=== PATIENT | male | born 1935 | race Caucasian/White ===

== ENCOUNTER 2017-07-09 19:02 | Inpatient (IN) | payer MEDICARE ==
[~2017-07-09] VITALS: Ht 167.6 cm; Wt 81.8 kg
--- NOTE | 2017-07-09 19:35 | PHYS DOC ---
Adult General Chief Complaint Chief Complaint: PSYCH EVALUATION HPI HPI 82-year-old male sent to the emergency department for evaluation of difficult behaviors for medical clearance in anticipation of psychiatric admission. Patient is alert and cooperative. He has no SI or HI. Patient has not overdosed or injured himself in any way. He has no complaints and is able ambulate with his walker and converse without difficulty Review of Systems Review of Systems Constitutional: Denies fever or chills [] Eyes: Denies change in visual acuity, redness, or eye pain [] HENT: Denies nasal congestion or sore throat [] Respiratory: Denies cough or shortness of breath [] Cardiovascular: No additional information not addressed in HPI [] GI: Denies abdominal pain, nausea, vomiting, bloody stools or diarrhea [] : Denies dysuria or hematuria [] Musculoskeletal: Denies back pain or joint pain [] Integument: Denies rash or skin lesions [] Neurologic: Denies headache, focal weakness or sensory changes [] Endocrine: Denies polyuria or polydipsia [] All other systems were reviewed and found to be within normal limits, except as documented in this note. Physical Exam Physical Exam Elderly male no acute distress ambulating easily with his walker. Well groomed. Mucous membranes moist supple neck clear lungs regular rate and rhythm benign abdomen normal extremities and a nonfocal neurologic exam Constitutional: Well developed, well nourished, no acute distress, non-toxic appearance. [] HENT: Normocephalic, atraumatic, bilateral external ears normal, oropharynx moist, no oral exudates, nose normal. [] Eyes: PERRLA, EOMI, conjunctiva normal, no discharge. [] Neck: Normal range of motion, no tenderness, supple, no stridor. [] Cardiovascular:Heart rate regular rhythm, no murmur [] Lungs & Thorax: Bilateral breath sounds clear to auscultation [] Abdomen: Bowel sounds normal, soft, no tenderness, no masses, no pulsatile masses. [] Skin: Warm, dry, no erythema, no rash. [] Back: No tenderness, no CVA tenderness. [] Extremities: No tenderness, no cyanosis, no clubbing, ROM intact, no edema. [] Neurologic: Alert and oriented, normal motor function, normal sensory function, no focal deficits noted. [] Psychologic: Flat affect, judgement normal, mood normal. [] EKG EKG [] Radiology/Procedures Radiology/Procedures [] Course & Med Decision Making Course & Med Decision Making Pertinent Labs and Imaging studies reviewed. (See chart for details) Elderly male sent for medical clearance for psychiatric evaluation. He is clinically stable and well-appearing with a benign exam. Medical clearance pending. If unremarkable patient will be transferred to [facility]. [] Dragon Disclaimer Dragon Disclaimer This electronic medical record was generated, in whole or in part, using a voice recognition dictation system. Departure Departure: Impression: Primary Impression: Depression Additional Impressions: Inappropriate behavior Prerenal azotemia Disposition: ADMITTED INPATIENT Admitting Physician: Other Condition: GOOD Problem Qualifiers RUTHY AWAD MD Jul 09, 2017 19:35
[2017-07-09 19:45] LABS: BASO # 0.1 x10^3/uL (0.0-0.2); BASO % 1 % (0-3); EOS # 0.1 x10^3/uL (0.0-0.7); EOS % 1 % (0-3); HEMATOCRIT 41.9 % (39.0-53.0); HEMOGLOBIN 14.8 g/dL (13.0-17.5); LYMPH # 1.3 x10^3/uL (1.0-4.8); LYMPH % 14 % (24-48); MEAN CORPUSCULAR HEMOGLOBIN 34 pg (25-35); MEAN CORPUSCULAR HGB CONC 35 g/dL (31-37); MEAN CORPUSCULAR VOLUME 95 fL (79-100); MONO # 0.6 x10^3/uL (0.0-1.1); MONO % 6 % (0-9); NEUT # 7.5 x10^3uL (1.8-7.7); NEUT % 79 % (31-73); PLATELET COUNT 194 x10^3/uL (140-400); RED BLOOD COUNT 4.41 x10^6/uL (4.30-5.70); RED CELL DISTRIBUTION WIDTH 13.4 % (11.5-14.5); WHITE BLOOD COUNT 9.6 x10^3/uL (4.0-11.0)
[2017-07-09 19:54] LABS: CALCIUM 8.5 mg/dL (8.5-10.1); CREATININE 1.1 mg/dL (0.7-1.3); GFR 64.4; POTASSIUM 3.5 mmol/L (3.5-5.1)
[2017-07-09 20:06] LABS: BILIRUBIN,URINE NEG (NEG); CLARITY,URINE CLEAR; COLOR,URINE YELLOW; GLUCOSE,URINE NEG (NEG); NITRITE,URINE NEG (NEG); UROBILINOGEN,URINE 0.2 mg/dL (0.2 mg/dL)
[2017-07-09 20:07] LABS: BACTERIA,URINE 0 /HPF (0-FEW); SQUAMOUS EPITHELIAL CELL,UR FEW /LPF
[2017-07-09 20:08] LABS: HYALINE CASTS, URINE OCC /HPF
[2017-07-09] MEDS ORDERED: IV NORMAL SALINE 1,000ML 1,000 ML IV ONE (21:30)
[2017-07-09] MEDS ORDERED: DIVA125C PO (22:00)
[2017-07-09] MEDS ORDERED: CYAN50TA PO (22:00)
[2017-07-09] MEDS ORDERED: MULT-246 PO (22:00)
[2017-07-09] MEDS ORDERED: TAMS0.4C97 PO (22:00)
[2017-07-09] MEDS ORDERED: DONE10TA61 PO (22:00)
[2017-07-09] MEDS ORDERED: AMLO10TA4 PO (22:00)
[2017-07-09] MEDS ORDERED: MEMA10TA PO ×2 (22:00)
[2017-07-09] MEDS ORDERED: CLON0.1T PO (22:00)
[2017-07-09] MEDS ORDERED: LISI40TA PO (22:00)
[2017-07-09] MEDS ORDERED: MAGNESIUM HYDROXIDE 2,400 MG/30 ML ORAL.SUSP. PO PRN (22:45)
[2017-07-09] MEDS ORDERED: MAG HYDROX/AL HYDROX/SIMETH 30 ML ORAL.SUSP PO PRN (22:45)
[2017-07-09] MEDS ORDERED: METHYL SALICYLATE/MENTHOL TOPICAL OINTMENT 29GM TUBE. TP PRN (22:45)
[2017-07-09] MEDS ORDERED: ACETAMINOPHEN 325 MG TABLET PO PRN (22:45)
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
[2017-07-09] MEDS ORDERED: cloNIDine HCL 0.1 MG TABLET PO PRN (23:15)
[2017-07-09 23:36] VITALS: BP 164/85
[2017-07-10 00:02] LABS: VAL ACID 6 mcg/mL (50-100)
[2017-07-10 06:10] VITALS: BP 141/67
[2017-07-10] MEDS: amLODIPine BESYLATE 10 MG TABLET PO SCH (07:33)
[2017-07-10] MEDS: MEMANTINE 10 MG TABLET. PO SCH ×2 (07:33→19:39)
[2017-07-10] MEDS: TAMSULOSIN 0.4 MG CAP.ER.24H. PO SCH (07:33)
[2017-07-10] MEDS: DONEPEZIL HCL 10 MG TABLET PO SCH (07:33)
[2017-07-10] MEDS: LISINOPRIL 20 MG TABLET PO SCH (07:34)
[2017-07-10] MEDS: CYANOCOBALAMIN (VITAMIN B-12) 100 MCG TABLET PO SCH (07:35)
[2017-07-10] MEDS: MULTIVITAMIN with MINERAL TABLET. PO SCH (07:35)
[2017-07-10] MEDS ORDERED: DIVALPROEX 125 MG CAP.SPRINK PO SCH (09:00)
[2017-07-10] MEDS ORDERED: PNEUMOC CONJ VACC 23-VALENT 0.5 ML VIAL. VAX IM ONE (09:00)
--- NOTE | 2017-07-10 09:12 | EKG ---
[address] [address] Test Date: 2017-07-09 Test Time: 19:43:13 Pat Name: JOHN OLSEN Department: Room: [address] [place] [address] Gender: M Food Stand Manager: SAE : [id number] Requested By: RUTHY AWAD Order Number: [id number] Reading MD: Robson Ruiz Measurements Intervals [place] Rate: 80 P: 59 MD: 168 QRS: 45 QRSD: 82 T: 49 QT: 360 QTc: 419 Interpretive Statements SINUS RHYTHM NORMAL ECG RI6.01 No previous ECG available for comparison Electronically Signed On 07-26-2017 15:59:00 CDT by Robson Ruiz
--- NOTE | 2017-07-10 10:06 | NUR ---
Behavior Intervention Response and Plan: BIRP Note: Behavior: Assumed Care of patient, patient located in Dining Room at shift change. Patient exhibited the following behavior Disorganized, Calm, Wandering. Brief assessment on rounds of vital signs, medication needs, lab studies, and pain. Treatment plan problems . Intervention: Patient assessed and the following interventions initiated safety checks 15 Minute Checks Cognitive Assessment , Head to toe Assessment , Medications. Response: After interactions and interventions patient responded in the following manner, Disorganized , Compliant ,Cooperative. Continue to assess behaviors and condition will continue to monitor throughout the shift as needed. Patient educated on ADL's, and hand hygiene. 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 Continue to assess patient for changes in above assessment. Monitor for medication needs, pain, and safety concerns. Hourly rounding performed to ensure safe environment.
[2017-07-10 12:02] LABS: THYROID STIM HORMONE (TSH) 0.937 uIU/mL (0.358-3.740)
--- NOTE | 2017-07-10 13:25 | NUR ---
SW reviewed pt insurance information upon admission, pt has Medicare primary.
[2017-07-10] MEDS: CHOLECALCIFEROL (VITAMIN D3) 50,000 UNIT CAPSULE PO SCH (14:37)
--- NOTE | 2017-07-10 14:39 | NUR ---
pt up adl with and without walker. ambulates up halls rapidly. pt opens eyes widely and tracks poorly. Dr aware. Pt has hx of head injury. has been compliant with meds and cares.
[2017-07-10 16:12] VITALS: BP 139/71
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
--- NOTE | 2017-07-10 18:19 | PDOC ---
Exam Note: Lavon Note: Please also refer to the separate dictated note~for this date of service dictated separately.~Patient seen individually. Discussed the patient with Nursing staff reviewed the chart.~Reviewed interim history and current functioning. Reviewed vital signs,~Labs/ Radiology~and current medications noted below. Continue current treatment with the changes noted in the dictated addendum note Assessment: Vital Signs: Vital Signs Date Time Temp Pulse Resp B/P (MAP) Pulse Ox O2 Delivery O2 Flow Rate FiO2 07/10/17 16:12 98.5 70 16 139/71 (93) 94 07/09/17 23:36 Room Air 0.0 I&O Intake and Output 07/10/17 07:00 Intake Total 1000 ml Balance 1000 ml Intake Oral 0 ml IV Total 1000 ml Labs: Laboratory Tests Test 07/09/17 19:16 07/09/17 19:26 White Blood Count 9.6 x10^3/uL (4.0-11.0) Red Blood Count 4.41 x10^6/uL (4.30-5.70) Hemoglobin 14.8 g/dL (13.0-17.5) Hematocrit 41.9 % (39.0-53.0) Mean Corpuscular Volume 95 fL (79-100) Mean Corpuscular Hemoglobin 34 pg (25-35) Mean Corpuscular Hemoglobin Concent 35 g/dL (31-37) Red Cell Distribution Width 13.4 % (11.5-14.5) Platelet Count 194 x10^3/uL (140-400) Neutrophils (%) (Auto) 79 % (31-73) H Lymphocytes (%) (Auto) 14 % (24-48) L Monocytes (%) (Auto) 6 % (0-9) Eosinophils (%) (Auto) 1 % (0-3) Basophils (%) (Auto) 1 % (0-3) Neutrophils # (Auto) 7.5 x10^3uL (1.8-7.7) Lymphocytes # (Auto) 1.3 x10^3/uL (1.0-4.8) Monocytes # (Auto) 0.6 x10^3/uL (0.0-1.1) Eosinophils # (Auto) 0.1 x10^3/uL (0.0-0.7) Basophils # (Auto) 0.1 x10^3/uL (0.0-0.2) Urine Collection Type Unknown Urine Color Yellow Urine Clarity Clear Urine pH 6.0 Urine Specific [place] 1.020 Urine Protein 30 mg/dl (NEG-TRACE) Urine Glucose (UA) Neg mg/dL (NEG) Urine Ketones (Stick) Neg mg/dL (NEG) Urine Blood Trace (NEG) Urine Nitrite Neg (NEG) Urine Bilirubin Neg (NEG) Urine Urobilinogen Dipstick 0.2 mg/dL (0.2 mg/dL) Urine Leukocyte Esterase Neg (NEG) Urine RBC 1-2 /HPF (0-2) Urine WBC 5-10 /HPF (0-4) Urine Squamous Epithelial Cells Few /LPF Urine Bacteria 0 /HPF (0-FEW) Urine Hyaline Casts Occ /HPF Urine Mucus Slight /LPF Sodium Level 142 mmol/L (136-145) Potassium Level 3.5 mmol/L (3.5-5.1) Chloride Level 107 mmol/L (98-107) Carbon Dioxide Level 23 mmol/L (21-32) Anion Gap 12 (6-14) Blood Urea Nitrogen 28 mg/dL (8-26) H Creatinine 1.1 mg/dL (0.7-1.3) Estimated GFR (Cockcroft-Gault) 64.4 Glucose Level 157 mg/dL (70-99) H Calcium Level 8.5 mg/dL (8.5-10.1) Troponin I Quantitative < 0.017 ng/mL (0-0.055) Magnesium Level 2.0 mg/dL (1.8-2.4) Iron Level 37 ug/dL (65-175) L Total Iron Binding Capacity 266 ug/dL (250-450) Iron Saturation 14 % (15-34) L Triglycerides Level 405 mg/dL (0-150) H Cholesterol Level 205 mg/dL (0-200) H LDL Cholesterol, Calculated 96 mg/dL (0-100) VLDL Cholesterol, Calculated 81 mg/dL (0-40) H Non-HDL Cholesterol Calculated 177 mg/dL (0-129) H HDL Cholesterol 28 mg/dL (40-60) L Cholesterol/HDL Ratio 7.0 Vitamin B12 Level 442 pg/mL (247-911) 25-Hydroxy Vitamin D Total 21.6 ng/mL (30-100) L Thyroid Stimulating Hormone (TSH) 0.937 uIU/mL (0.358-3.740) Valproic Acid Level 6 mcg/mL (50-100) L Valproic Acid Last Dose Date 07/08/2017 Valproic Acid Last Dose Time 2100 Current Medications: Meds: Current Medications Sodium Chloride 1,000 ml @ 1,000 mls/hr 1X ONCE IV Last administered on at 21:19; Start 07/09/17 at 21:30; Stop 07/09/17 at 22:29; Status DC Acetaminophen (Tylenol) 650 mg PRN Q6HRS PRN PO PAIN / TEMP; Start 07/09/17 at 22:45 Multi-Ingredient Ointment (Analgesic [place]) 1 camryn PRN QID PRN TP MUSCLE PAIN; Start 07/09/17 at 22:45 Al Hydroxide/Mg Hydroxide (Mylanta Plus Xs) 15 ml PRN AFTMEALHC PRN PO DYSPEPSIA; Start 07/09/17 at 22:45 Magnesium Hydroxide (Milk Of Magnesia) 2,400 mg PRN QHS PRN PO CONSTIPATION; Start 07/09/17 at 22:45 Divalproex Sodium (Depakote Sprinkles) 125 mg DAILY PO Last administered on at 07:33; Start 07/10/17 at 09:00 Donepezil HCl (Aricept) 10 mg DAILY PO Last administered on 07/10/17at 07:33; Start 07/10/17 at 09:00 Memantine (Namenda) 10 mg BID PO Last administered on 07/10/17at 07:33; Start at 09:00 Amlodipine Besylate (Norvasc) 10 mg DAILY PO Last administered on 07/10/17at 07: 33; Start 07/10/17 at 09:00 Clonidine HCl (Catapres) 0.1 mg PRN BID PRN PO HTN; Start 07/09/17 at 23:15 Tamsulosin HCl (Flomax) 0.4 mg DAILY PO Last administered on 07/10/17at 07:33; Start 07/10/17 at 09:00 Cyanocobalamin (Vitamin B-12) 50 mcg DAILY PO ; Start 07/10/17 at 09:00 Lisinopril (Prinivil) 40 mg DAILY PO Last administered on 07/10/17at 07:34; Start 07/10/17 at 09:00 Multivitamins/ Calcium (Thera-M Plus) 1 tab DAILY PO Last administered on at 07:35; Start 07/10/17 at 09:00 Pneumococcal Polyvalent Vaccine (Pneumovax 23) 0.5 ml ONCE ONCE VAX IM Last administered on 07/10/17at 09:40; Start 07/10/17 at 09:00; Stop 07/10/17 at 09:01 ; Status DC Vitamin D (Vitamin D3) 50,000 unit WEEKLY PO Last administered on 07/10/17at 14: 37; Start 07/10/17 at 15:00 Active Scripts Active Reported Clonidine Hcl 0.1 Mg Tablet 0.1 Mg PO PRN BID PRN Depakote Sprinkle (Divalproex Sodium) 125 Mg Cap.sprink 125 Mg PO DAILY Norvasc (Amlodipine Besylate) 10 Mg Tablet 10 Mg PO DAILY Vitamin B-12 (Cyanocobalamin (Vitamin B-12)) 50 Mcg Tablet 50 Mcg PO DAILY Multi-Vitamin Daily (Multivitamin) 1 Each Tablet 1 Tab PO DAILY Flomax (Tamsulosin Hcl) 0.4 Mg Cap.er.24h 0.4 Mg PO DAILY Namenda (Memantine Hcl) 10 Mg Tablet 10 Mg PO BID Lisinopril 40 Mg Tablet 40 Mg PO DAILY Aricept (Donepezil Hcl) 10 Mg Tablet 10 Mg PO DAILY I have reviewed the current psychotropics carefully including drug interactions. Risk benefit ratio favors no change other than as noted in my dictated progress note. Diagnosis: Problems: (1) Anxiety disorder (2) Dementia in Alzheimer's disease with delusions (3) Dementia in Alzheimer's disease with depression (4) Dementia, vascular, with delusions (5) Dementia, vascular, with depression (6) Impulse control disorder NEVILLE ANTONIO MD Jul 10, 2017 18:19
[2017-07-10] MEDS: DIVALPROEX 125 MG CAP.SPRINK PO SCH (19:41)
[2017-07-10] MEDS: MIRTAZAPINE 7.5 MG TABLET. PO SCH (19:41)
--- NOTE | 2017-07-10 20:42 | PDOC ---
Exam Note: Lavon Note: Please also refer to the separate dictated note~for this date of service dictated separately.~Patient seen individually. Discussed the patient with Nursing staff reviewed the chart.~Reviewed interim history and current functioning. Reviewed vital signs,~Labs/ Radiology~and current medications noted below. Continue current treatment with the changes noted in the dictated addendum note Assessment: Vital Signs: Vital Signs Date Time Temp Pulse Resp B/P (MAP) Pulse Ox O2 Delivery O2 Flow Rate FiO2 07/10/17 16:12 98.5 70 16 139/71 (93) 94 07/09/17 23:36 Room Air 0.0 I&O Intake and Output 07/10/17 07:00 Intake Total 1000 ml Balance 1000 ml Intake Oral 0 ml IV Total 1000 ml Current Medications: Meds: Current Medications Sodium Chloride 1,000 ml @ 1,000 mls/hr 1X ONCE IV Last administered on at 21:19; Start 07/09/17 at 21:30; Stop 07/09/17 at 22:29; Status DC Acetaminophen (Tylenol) 650 mg PRN Q6HRS PRN PO PAIN / TEMP; Start 07/09/17 at 22:45 Multi-Ingredient Ointment (Analgesic [place]) 1 camryn PRN QID PRN TP MUSCLE PAIN; Start 07/09/17 at 22:45 Al Hydroxide/Mg Hydroxide (Mylanta Plus Xs) 15 ml PRN AFTMEALHC PRN PO DYSPEPSIA; Start 07/09/17 at 22:45 Magnesium Hydroxide (Milk Of Magnesia) 2,400 mg PRN QHS PRN PO CONSTIPATION; Start 07/09/17 at 22:45 Divalproex Sodium (Depakote Sprinkles) 125 mg DAILY PO Last administered on at 07:33; Start 07/10/17 at 09:00; Stop 07/10/17 at 18:16; Status DC Donepezil HCl (Aricept) 10 mg DAILY PO Last administered on 07/10/17at 07:33; Start 07/10/17 at 09:00 Memantine (Namenda) 10 mg BID PO Last administered on 07/10/17at 19:39; Start at 09:00 Amlodipine Besylate (Norvasc) 10 mg DAILY PO Last administered on 07/10/17at 07: 33; Start 07/10/17 at 09:00 Clonidine HCl (Catapres) 0.1 mg PRN BID PRN PO HTN; Start 07/09/17 at 23:15 Tamsulosin HCl (Flomax) 0.4 mg DAILY PO Last administered on 07/10/17at 07:33; Start 07/10/17 at 09:00 Cyanocobalamin (Vitamin B-12) 50 mcg DAILY PO ; Start 07/10/17 at 09:00 Lisinopril (Prinivil) 40 mg DAILY PO Last administered on 07/10/17at 07:34; Start 07/10/17 at 09:00 Multivitamins/ Calcium (Thera-M Plus) 1 tab DAILY PO Last administered on at 07:35; Start 07/10/17 at 09:00 Pneumococcal Polyvalent Vaccine (Pneumovax 23) 0.5 ml ONCE ONCE VAX IM Last administered on 07/10/17at 09:40; Start 07/10/17 at 09:00; Stop 07/10/17 at 09:01 ; Status DC Vitamin D (Vitamin D3) 50,000 unit WEEKLY PO Last administered on 07/10/17at 14: 37; Start 07/10/17 at 15:00 Divalproex Sodium (Depakote Sprinkles) 250 mg BID PO Last administered on at 19:41; Start 07/10/17 at 21:00 Mirtazapine (Remeron) 7.5 mg QHS PO Last administered on 07/10/17at 19:41; Start 07/10/17 at 21:00 Active Scripts Active Reported Clonidine Hcl 0.1 Mg Tablet 0.1 Mg PO PRN BID PRN Depakote Sprinkle (Divalproex Sodium) 125 Mg Cap.sprink 125 Mg PO DAILY Norvasc (Amlodipine Besylate) 10 Mg Tablet 10 Mg PO DAILY Vitamin B-12 (Cyanocobalamin (Vitamin B-12)) 50 Mcg Tablet 50 Mcg PO DAILY Multi-Vitamin Daily (Multivitamin) 1 Each Tablet 1 Tab PO DAILY Flomax (Tamsulosin Hcl) 0.4 Mg Cap.er.24h 0.4 Mg PO DAILY Namenda (Memantine Hcl) 10 Mg Tablet 10 Mg PO BID Lisinopril 40 Mg Tablet 40 Mg PO DAILY Aricept (Donepezil Hcl) 10 Mg Tablet 10 Mg PO DAILY I have reviewed the current psychotropics carefully including drug interactions. Risk benefit ratio favors no change other than as noted in my dictated progress note. Diagnosis: Problems: (1) Anxiety disorder (2) Impulse control disorder (3) Dementia, vascular, with depression (4) Dementia, vascular, with delusions (5) Dementia in Alzheimer's disease with depression (6) Dementia in Alzheimer's disease with delusions NEVILLE ANTONIO MD Jul 10, 2017 20:42
[2017-07-11 00:07] LABS: T3 TOTAL 82 ng/dL (71-180); THYROXINE 5.8 ug/dL (4.5-12.0)
[2017-07-11 04:08] LABS: HEMOGLOBIN A1C 5.2 % (4.8-5.6)
[2017-07-11 06:19] VITALS: BP 126/62
[2017-07-11] MEDS: TAMSULOSIN 0.4 MG CAP.ER.24H. PO SCH (07:44)
[2017-07-11] MEDS: MULTIVITAMIN with MINERAL TABLET. PO SCH (07:44)
[2017-07-11] MEDS: LISINOPRIL 20 MG TABLET PO SCH (07:44)
[2017-07-11] MEDS: DONEPEZIL HCL 10 MG TABLET PO SCH (07:44)
[2017-07-11] MEDS: MEMANTINE 10 MG TABLET. PO SCH ×2 (07:44→20:15)
[2017-07-11] MEDS: DIVALPROEX 125 MG CAP.SPRINK PO SCH ×2 (07:45→20:15)
[2017-07-11] MEDS: amLODIPine BESYLATE 10 MG TABLET PO SCH (07:50)
[2017-07-11] MEDS: CYANOCOBALAMIN (VITAMIN B-12) 100 MCG TABLET PO SCH (07:51)
--- NOTE | 2017-07-11 09:38 | NUR ---
Behavior Intervention Response and Plan: BIRP Note: Behavior: Assumed Care of patient, patient located in Dining Room at shift change. Patient exhibited the following behavior Disorganized, Calm, Wandering. Brief assessment on rounds of vital signs, medication needs, lab studies, and pain. Treatment plan problems . Intervention: Patient assessed and the following interventions initiated safety checks 15 Minute Checks Cognitive Assessment , Head to toe Assessment , Medications. Response: After interactions and interventions patient responded in the following manner, Disorganized , Compliant ,Cooperative. Continue to assess behaviors and condition will continue to monitor throughout the shift as needed. Patient educated on ADL's, and hand hygiene. 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 Continue to assess patient for changes in above assessment. Monitor for medication needs, pain, and safety concerns. Hourly rounding performed to ensure safe environment.
--- NOTE | 2017-07-11 16:07 | PDOC ---
Exam Note: Lavon Note: Please also refer to the separate dictated note~for this date of service dictated separately.~Patient seen individually. Discussed the patient with Nursing staff reviewed the chart.~Reviewed interim history and current functioning. Reviewed vital signs,~Labs/ Radiology~and current medications noted below. Continue current treatment with the changes noted in the dictated addendum note Assessment: Vital Signs: Vital Signs Date Time Temp Pulse Resp B/P (MAP) Pulse Ox O2 Delivery O2 Flow Rate FiO2 07/11/17 07:50 58 126/62 07/11/17 06:19 97.7 18 95 07/09/17 23:36 Room Air 0.0 I&O Intake and Output 07/11/17 07:00 Intake Total 1440 ml Balance 1440 ml Intake Oral 1440 ml Current Medications: Meds: Current Medications Sodium Chloride 1,000 ml @ 1,000 mls/hr 1X ONCE IV Last administered on at 21:19; Start 07/09/17 at 21:30; Stop 07/09/17 at 22:29; Status DC Acetaminophen (Tylenol) 650 mg PRN Q6HRS PRN PO PAIN / TEMP; Start 07/09/17 at 22:45 Multi-Ingredient Ointment (Analgesic [place]) 1 camryn PRN QID PRN TP MUSCLE PAIN; Start 07/09/17 at 22:45 Al Hydroxide/Mg Hydroxide (Mylanta Plus Xs) 15 ml PRN AFTMEALHC PRN PO DYSPEPSIA; Start 07/09/17 at 22:45 Magnesium Hydroxide (Milk Of Magnesia) 2,400 mg PRN QHS PRN PO CONSTIPATION; Start 07/09/17 at 22:45 Divalproex Sodium (Depakote Sprinkles) 125 mg DAILY PO Last administered on at 07:33; Start 07/10/17 at 09:00; Stop 07/10/17 at 18:16; Status DC Donepezil HCl (Aricept) 10 mg DAILY PO Last administered on 07/11/17at 07:44; Start 07/10/17 at 09:00 Memantine (Namenda) 10 mg BID PO Last administered on 07/11/17at 07:44; Start at 09:00 Amlodipine Besylate (Norvasc) 10 mg DAILY PO Last administered on 07/11/17at 07: 50; Start 07/10/17 at 09:00 Clonidine HCl (Catapres) 0.1 mg PRN BID PRN PO HTN; Start 07/09/17 at 23:15 Tamsulosin HCl (Flomax) 0.4 mg DAILY PO Last administered on 07/11/17at 07:44; Start 07/10/17 at 09:00 Cyanocobalamin (Vitamin B-12) 50 mcg DAILY PO Last administered on 07/11/17 07 :51; Start 07/10/17 at 09:00 Lisinopril (Prinivil) 40 mg DAILY PO Last administered on 07/11/17 07:44; Start 07/10/17 at 09:00 Multivitamins/ Calcium (Thera-M Plus) 1 tab DAILY PO Last administered on at 07:44; Start 07/10/17 at 09:00 Pneumococcal Polyvalent Vaccine (Pneumovax 23) 0.5 ml ONCE ONCE VAX IM Last administered on 07/10/17at 09:40; Start 07/10/17 at 09:00; Stop 07/10/17 at 09:01 ; Status DC Vitamin D (Vitamin D3) 50,000 unit WEEKLY PO Last administered on 07/10/17at 14: 37; Start 07/10/17 at 15:00 Divalproex Sodium (Depakote Sprinkles) 250 mg BID PO Last administered on 07:45; Start 07/10/17 at 21:00 Mirtazapine (Remeron) 7.5 mg QHS PO Last administered on 07/10/17at 19:41; Start 07/10/17 at 21:00 Active Scripts Active Reported Clonidine Hcl 0.1 Mg Tablet 0.1 Mg PO PRN BID PRN Depakote Sprinkle (Divalproex Sodium) 125 Mg Cap.sprink 125 Mg PO DAILY Norvasc (Amlodipine Besylate) 10 Mg Tablet 10 Mg PO DAILY Vitamin B-12 (Cyanocobalamin (Vitamin B-12)) 50 Mcg Tablet 50 Mcg PO DAILY Multi-Vitamin Daily (Multivitamin) 1 Each Tablet 1 Tab PO DAILY Flomax (Tamsulosin Hcl) 0.4 Mg Cap.er.24h 0.4 Mg PO DAILY Namenda (Memantine Hcl) 10 Mg Tablet 10 Mg PO BID Lisinopril 40 Mg Tablet 40 Mg PO DAILY Aricept (Donepezil Hcl) 10 Mg Tablet 10 Mg PO DAILY I have reviewed the current psychotropics carefully including drug interactions. Risk benefit ratio favors no change other than as noted in my dictated progress note. Diagnosis: Problems: (1) Dementia in Alzheimer's disease with delusions (2) Dementia in Alzheimer's disease with depression (3) Dementia, vascular, with delusions (4) Dementia, vascular, with depression (5) Impulse control disorder (6) Anxiety disorder NEVILLE ANTONIO MD Jul 11, 2017 16:07
[2017-07-11 16:11] VITALS: BP 119/50
--- NOTE | 2017-07-11 16:37 | NUR ---
pt up adl with walker. reminded several times to use walker. has been obsessed with getting personal items out of locker. has been compliant with meds and cares. pt thought nurse was working on flight plan schedule. he was asking when next flight was leaving. pt has had visitors and talked with dtr Josefina on phone.
[2017-07-11] MEDS: MIRTAZAPINE 7.5 MG TABLET. PO SCH (20:15)
[2017-07-11] MEDS: ATORVASTATIN CALCIUM 10 MG TABLET. PO SCH (21:55)
--- NOTE | 2017-07-11 22:56 | PDOC ---
Exam Note: Lavon Note: Please also refer to the separate dictated note~for this date of service dictated separately.~Patient seen individually. Discussed the patient with Nursing staff reviewed the chart.~Reviewed interim history and current functioning. Reviewed vital signs,~Labs/ Radiology~and current medications noted below. Continue current treatment with the changes noted in the dictated addendum note Assessment: Vital Signs: Vital Signs Date Time Temp Pulse Resp B/P (MAP) Pulse Ox O2 Delivery O2 Flow Rate FiO2 07/11/17 16:11 98.9 74 20 119/50 (73) 93 07/09/17 23:36 Room Air 0.0 I&O Intake and Output 07/11/17 07:00 Intake Total 1440 ml Balance 1440 ml Intake Oral 1440 ml Current Medications: Meds: Current Medications Sodium Chloride 1,000 ml @ 1,000 mls/hr 1X ONCE IV Last administered on at 21:19; Start 07/09/17 at 21:30; Stop 07/09/17 at 22:29; Status DC Acetaminophen (Tylenol) 650 mg PRN Q6HRS PRN PO PAIN / TEMP; Start 07/09/17 at 22:45 Multi-Ingredient Ointment (Analgesic [place]) 1 camryn PRN QID PRN TP MUSCLE PAIN; Start 07/09/17 at 22:45 Al Hydroxide/Mg Hydroxide (Mylanta Plus Xs) 15 ml PRN AFTMEALHC PRN PO DYSPEPSIA; Start 07/09/17 at 22:45 Magnesium Hydroxide (Milk Of Magnesia) 2,400 mg PRN QHS PRN PO CONSTIPATION; Start 07/09/17 at 22:45 Divalproex Sodium (Depakote Sprinkles) 125 mg DAILY PO Last administered on at 07:33; Start 07/10/17 at 09:00; Stop 07/10/17 at 18:16; Status DC Donepezil HCl (Aricept) 10 mg DAILY PO Last administered on 07/11/17at 07:44; Start 07/10/17 at 09:00 Memantine (Namenda) 10 mg BID PO Last administered on 07/11/17at 20:15; Start at 09:00 Amlodipine Besylate (Norvasc) 10 mg DAILY PO Last administered on 07/11/17at 07: 50; Start 07/10/17 at 09:00 Clonidine HCl (Catapres) 0.1 mg PRN BID PRN PO HTN; Start 07/09/17 at 23:15 Tamsulosin HCl (Flomax) 0.4 mg DAILY PO Last administered on 07/11/17at 07:44; Start 07/10/17 at 09:00 Cyanocobalamin (Vitamin B-12) 50 mcg DAILY PO Last administered on 07/11/17 07 :51; Start 07/10/17 at 09:00 Lisinopril (Prinivil) 40 mg DAILY PO Last administered on 07/11/17 07:44; Start 07/10/17 at 09:00 Multivitamins/ Calcium (Thera-M Plus) 1 tab DAILY PO Last administered on 07:44; Start 07/10/17 at 09:00 Pneumococcal Polyvalent Vaccine (Pneumovax 23) 0.5 ml ONCE ONCE VAX IM Last administered on 07/10/17 09:40; Start 07/10/17 at 09:00; Stop 07/10/17 at 09:01 ; Status DC Vitamin D (Vitamin D3) 50,000 unit WEEKLY PO Last administered on 07/10/17at 14: 37; Start 07/10/17 at 15:00 Divalproex Sodium (Depakote Sprinkles) 250 mg BID PO Last administered on at 20:15; Start 07/10/17 at 21:00 Mirtazapine (Remeron) 7.5 mg QHS PO Last administered on 07/11/17 20:15; Start 07/10/17 at 21:00 Atorvastatin Calcium (Lipitor) 10 mg QHS PO Last administered on 07/11/17at 21: 55; Start 07/11/17 at 21:00 Active Scripts Active Reported Clonidine Hcl 0.1 Mg Tablet 0.1 Mg PO PRN BID PRN Depakote Sprinkle (Divalproex Sodium) 125 Mg Cap.sprink 125 Mg PO DAILY Norvasc (Amlodipine Besylate) 10 Mg Tablet 10 Mg PO DAILY Vitamin B-12 (Cyanocobalamin (Vitamin B-12)) 50 Mcg Tablet 50 Mcg PO DAILY Multi-Vitamin Daily (Multivitamin) 1 Each Tablet 1 Tab PO DAILY Flomax (Tamsulosin Hcl) 0.4 Mg Cap.er.24h 0.4 Mg PO DAILY Namenda (Memantine Hcl) 10 Mg Tablet 10 Mg PO BID Lisinopril 40 Mg Tablet 40 Mg PO DAILY Aricept (Donepezil Hcl) 10 Mg Tablet 10 Mg PO DAILY I have reviewed the current psychotropics carefully including drug interactions. Risk benefit ratio favors no change other than as noted in my dictated progress note. Diagnosis: Problems: (1) Anxiety disorder (2) Impulse control disorder (3) Dementia, vascular, with depression (4) Dementia, vascular, with delusions (5) Dementia in Alzheimer's disease with depression (6) Dementia in Alzheimer's disease with delusions NEVILLE ANTONIO MD Jul 11, 2017 22:56
--- NOTE | 2017-07-12 02:11 | NUR ---
Behavior Intervention Response and Plan: BIRP Note: Behavior: Assumed Care of patient, patient located in Hallway at shift change. Patient exhibited the following behavior Restless, Disorganized, Anxious. Brief assessment on rounds of vital signs, medication needs, lab studies, and pain. Treatment plan problems Dementia with BD and Fall Risk. Intervention: Patient assessed and the following interventions initiated safety checks 15 Minute Checks Cognitive Assessment , Head to toe Assessment , Medications. Response: After interactions and interventions patient responded in the following manner, Calm , Compliant ,Cooperative. Continue to assess behaviors and condition will continue to monitor throughout the shift as needed. Patient educated on ADL's, and hand hygiene. Plan: Continue to monitor Master Treatment Plan for patient's progress toward short term goals of Decreased Agitation, Decreased Aggression, prison goals to return to previous living setting vs placement. Continue to assess patient for changes in above assessment. Monitor for medication needs, pain, and safety concerns. Hourly rounding performed to ensure safe environment.
[2017-07-12 06:10] VITALS: BP 133/58
[2017-07-12] MEDS: LISINOPRIL 20 MG TABLET PO SCH (08:06)
[2017-07-12] MEDS: MULTIVITAMIN with MINERAL TABLET. PO SCH (08:06)
[2017-07-12] MEDS: MEMANTINE 10 MG TABLET. PO SCH ×2 (08:07→19:39)
[2017-07-12] MEDS: TAMSULOSIN 0.4 MG CAP.ER.24H. PO SCH (08:07)
[2017-07-12] MEDS: DONEPEZIL HCL 10 MG TABLET PO SCH (08:07)
[2017-07-12] MEDS: DIVALPROEX 125 MG CAP.SPRINK PO SCH ×2 (08:07→19:39)
[2017-07-12] MEDS: amLODIPine BESYLATE 10 MG TABLET PO SCH (08:07)
[2017-07-12] MEDS: CYANOCOBALAMIN (VITAMIN B-12) 100 MCG TABLET PO SCH (08:09)
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
--- NOTE | 2017-07-12 10:23 | NUR ---
Behavior Intervention Response and Plan: BIRP Note: Behavior: Assumed Care of patient, patient located in Dining Room at shift change. Patient exhibited the following behavior Disorganized, compliant, Restless. Brief assessment on rounds of vital signs, medication needs, lab studies, and pain. Treatment plan problems . Intervention: Patient assessed and the following interventions initiated safety checks 15 Minute Checks Cognitive Assessment , Head to toe Assessment , Medications. Response: After interactions and interventions patient responded in the following manner, Compliant , Disorganized ,Wandering. Continue to assess behaviors and condition will continue to monitor throughout the shift as needed. Patient educated on ADL's, and hand hygiene. Plan: Continue to monitor Master Treatment Plan for patient's progress toward short term goals of Decreased Agitation, Decreased Anxiety, long term care social worker goals to return to previous living setting vs placement. Continue to assess patient for changes in above assessment. Monitor for medication needs, pain, and safety concerns. Hourly rounding performed to ensure safe environment.
--- NOTE | 2017-07-12 10:45 | NUR ---
Attempted to meet and compelte Activity Therapy Assessment; however, Pt. was taking a shower and performing ADLs.
--- NOTE | 2017-07-12 15:34 | NUR ---
pt up adl with walker. compliant with meds and cares. still occasional delusional. thinks he needs flight plans and asks when next flight is leaving. dtr here at lunch. visit went well.
[2017-07-12 16:12] VITALS: BP 132/77
[2017-07-12] MEDS: ATORVASTATIN CALCIUM 10 MG TABLET. PO SCH (19:39)
[2017-07-12] MEDS: MIRTAZAPINE 7.5 MG TABLET. PO SCH (19:39)
--- NOTE | 2017-07-12 20:54 | PDOC ---
Exam Note: Lavon Note: Please also refer to the separate dictated note~for this date of service dictated separately.~Patient seen individually. Discussed the patient with Nursing staff reviewed the chart.~Reviewed interim history and current functioning. Reviewed vital signs,~Labs/ Radiology~and current medications noted below. Continue current treatment with the changes noted in the dictated addendum note Assessment: Vital Signs: Vital Signs Date Time Temp Pulse Resp B/P (MAP) Pulse Ox O2 Delivery O2 Flow Rate FiO2 07/12/17 16:12 98.0 100 16 132/77 (95) 95 07/09/17 23:36 Room Air 0.0 I&O Intake and Output 07/12/17 07:00 Intake Total 880 ml Balance 880 ml Intake Oral 880 ml Current Medications: Meds: Current Medications Sodium Chloride 1,000 ml @ 1,000 mls/hr 1X ONCE IV Last administered on at 21:19; Start 07/09/17 at 21:30; Stop 07/09/17 at 22:29; Status DC Acetaminophen (Tylenol) 650 mg PRN Q6HRS PRN PO PAIN / TEMP; Start 07/09/17 at 22:45 Multi-Ingredient Ointment (Analgesic [place]) 1 camryn PRN QID PRN TP MUSCLE PAIN; Start 07/09/17 at 22:45 Al Hydroxide/Mg Hydroxide (Mylanta Plus Xs) 15 ml PRN AFTMEALHC PRN PO DYSPEPSIA; Start 07/09/17 at 22:45 Magnesium Hydroxide (Milk Of Magnesia) 2,400 mg PRN QHS PRN PO CONSTIPATION; Start 07/09/17 at 22:45 Divalproex Sodium (Depakote Sprinkles) 125 mg DAILY PO Last administered on at 07:33; Start 07/10/17 at 09:00; Stop 07/10/17 at 18:16; Status DC Donepezil HCl (Aricept) 10 mg DAILY PO Last administered on 07/12/17at 08:07; Start 07/10/17 at 09:00 Memantine (Namenda) 10 mg BID PO Last administered on 07/12/17at 19:39; Start at 09:00 Amlodipine Besylate (Norvasc) 10 mg DAILY PO Last administered on 07/12/17at 08: 07; Start 07/10/17 at 09:00 Clonidine HCl (Catapres) 0.1 mg PRN BID PRN PO HTN; Start 07/09/17 at 23:15 Tamsulosin HCl (Flomax) 0.4 mg DAILY PO Last administered on 07/12/17at 08:07; Start 07/10/17 at 09:00 Cyanocobalamin (Vitamin B-12) 50 mcg DAILY PO Last administered on 07/12/17 08 :09; Start 07/10/17 at 09:00 Lisinopril (Prinivil) 40 mg DAILY PO Last administered on 07/12/17 08:06; Start 07/10/17 at 09:00 Multivitamins/ Calcium (Thera-M Plus) 1 tab DAILY PO Last administered on 08:06; Start 07/10/17 at 09:00 Pneumococcal Polyvalent Vaccine (Pneumovax 23) 0.5 ml ONCE ONCE VAX IM Last administered on 07/10/17at 09:40; Start 07/10/17 at 09:00; Stop 07/10/17 at 09:01 ; Status DC Vitamin D (Vitamin D3) 50,000 unit WEEKLY PO Last administered on 07/10/17at 14: 37; Start 07/10/17 at 15:00 Divalproex Sodium (Depakote Sprinkles) 250 mg BID PO Last administered on at 19:39; Start 07/10/17 at 21:00 Mirtazapine (Remeron) 7.5 mg QHS PO Last administered on 07/12/17 19:39; Start 07/10/17 at 21:00 Atorvastatin Calcium (Lipitor) 10 mg QHS PO Last administered on 07/12/17at 19: 39; Start 07/11/17 at 21:00 Active Scripts Active Reported Clonidine Hcl 0.1 Mg Tablet 0.1 Mg PO PRN BID PRN Depakote Sprinkle (Divalproex Sodium) 125 Mg Cap.sprink 125 Mg PO DAILY Norvasc (Amlodipine Besylate) 10 Mg Tablet 10 Mg PO DAILY Vitamin B-12 (Cyanocobalamin (Vitamin B-12)) 50 Mcg Tablet 50 Mcg PO DAILY Multi-Vitamin Daily (Multivitamin) 1 Each Tablet 1 Tab PO DAILY Flomax (Tamsulosin Hcl) 0.4 Mg Cap.er.24h 0.4 Mg PO DAILY Namenda (Memantine Hcl) 10 Mg Tablet 10 Mg PO BID Lisinopril 40 Mg Tablet 40 Mg PO DAILY Aricept (Donepezil Hcl) 10 Mg Tablet 10 Mg PO DAILY I have reviewed the current psychotropics carefully including drug interactions. Risk benefit ratio favors no change other than as noted in my dictated progress note. Diagnosis: Problems: (1) Anxiety disorder (2) Impulse control disorder (3) Dementia, vascular, with depression (4) Dementia, vascular, with delusions (5) Dementia in Alzheimer's disease with depression (6) Dementia in Alzheimer's disease with delusions NEVILLE ANTONIO MD Jul 12, 2017 20:54
--- NOTE | 2017-07-12 22:52 | NUR ---
Behavior Intervention Response and Plan: BIRP Note: Behavior: Assumed Care of patient, patient located in Hallway at shift change. Patient exhibited the following behavior Restless, Disorganized, Anxious. Brief assessment on rounds of vital signs, medication needs, lab studies, and pain. Treatment plan problems Dementia with BD and Fall Risk. Intervention: Patient assessed and the following interventions initiated safety checks 15 Minute Checks Cognitive Assessment , Head to toe Assessment , Medications. Response: After interactions and interventions patient responded in the following manner, Calm , Compliant ,Cooperative. Continue to assess behaviors and condition will continue to monitor throughout the shift as needed. Patient educated on ADL's, and hand hygiene. Plan: Continue to monitor Master Treatment Plan for patient's progress toward short term goals of Decreased Agitation, Decreased Aggression, usp goals to return to previous living setting vs placement. Continue to assess patient for changes in above assessment. Monitor for medication needs, pain, and safety concerns. Hourly rounding performed to ensure safe environment.
[2017-07-13 06:25] VITALS: BP 130/76
[2017-07-13 06:44] LABS: BASO # 0.1 x10^3/uL (0.0-0.2); BASO % 1 % (0-3); EOS # 0.2 x10^3/uL (0.0-0.7); EOS % 2 % (0-3); HEMATOCRIT 39.9 % (39.0-53.0); HEMOGLOBIN 13.9 g/dL (13.0-17.5); LYMPH # 1.5 x10^3/uL (1.0-4.8); LYMPH % 21 % (24-48); MEAN CORPUSCULAR HEMOGLOBIN 33 pg (25-35); MEAN CORPUSCULAR HGB CONC 35 g/dL (31-37); MEAN CORPUSCULAR VOLUME 96 fL (79-100); MONO # 0.6 x10^3/uL (0.0-1.1); MONO % 8 % (0-9); NEUT # 4.8 x10^3uL (1.8-7.7); NEUT % 68 % (31-73); PLATELET COUNT 173 x10^3/uL (140-400); RED BLOOD COUNT 4.18 x10^6/uL (4.30-5.70); RED CELL DISTRIBUTION WIDTH 13.5 % (11.5-14.5); WHITE BLOOD COUNT 7.1 x10^3/uL (4.0-11.0)
[2017-07-13 06:55] LABS: ALBUMIN 2.9 g/dL (3.4-5.0); ALK PHOS 45 U/L (46-116); ALT (SGPT) 14 U/L (16-63); ANION GAP 6 (6-14); AST (SGOT) 8 U/L (15-37); BLOOD UREA NITROGEN 20 mg/dL (8-26); BUN/CREATININE RATIO 22 (6-20); CALCIUM 8.1 mg/dL (8.5-10.1); CARBON DIOXIDE 28 mmol/L (21-32); CHLORIDE 109 mmol/L (98-107); CREATININE 0.9 mg/dL (0.7-1.3); GFR 81.2; GLUCOSE 95 mg/dL (70-99); POTASSIUM 3.4 mmol/L (3.5-5.1); SODIUM 143 mmol/L (136-145); TOTAL BILIRUBIN 1.3 mg/dL (0.2-1.0); TOTAL PROTEIN 5.9 g/dL (6.4-8.2)
[2017-07-13 06:56] LABS: VAL ACID 26 mcg/mL (50-100)
[2017-07-13] MEDS: DONEPEZIL HCL 10 MG TABLET PO SCH (09:32)
[2017-07-13] MEDS: LISINOPRIL 20 MG TABLET PO SCH (09:32)
[2017-07-13] MEDS: DIVALPROEX 125 MG CAP.SPRINK PO SCH ×2 (09:32→19:36)
[2017-07-13] MEDS: amLODIPine BESYLATE 10 MG TABLET PO SCH (09:32)
[2017-07-13] MEDS: MULTIVITAMIN with MINERAL TABLET. PO SCH (09:32)
[2017-07-13] MEDS: MEMANTINE 10 MG TABLET. PO SCH ×2 (09:33→19:36)
[2017-07-13] MEDS: TAMSULOSIN 0.4 MG CAP.ER.24H. PO SCH (09:33)
[2017-07-13] MEDS: CYANOCOBALAMIN (VITAMIN B-12) 100 MCG TABLET PO SCH (09:34)
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
--- NOTE | 2017-07-13 09:44 | PN ---
DATE: 07/11/2017 This late entry 07/11/2017 covers elements not covered in my initial note 07/11/2017. Met with the patient in the evening of 07/11/2017. The patient remains confused, anxious, restless, constantly moving up and down the hallway, seemed to recognize his daughter, obsessed regarding his clothes. Slept 8-1/4 hours. Wanting a flight schedule so he can catch the correct flight. REVIEW OF SYSTEMS: No CV, , pulmonary, eye, ENT system symptoms on review. Reliability poor. MENTAL STATUS EXAM: Oriented to himself. Insight, judgment, recent and remote memory, attention, concentration, fund of knowledge poor, consistent with his diagnosis mentioned in my initial note. PLAN: Continue current psychotropics. Adjust as indicated. Labs to be repeated on the Depakote 07/13/2017. MAN Senthil ANTONIO MD DR: DUNCAN/regine JOB#: [id number] / [id number]
--- NOTE | 2017-07-13 11:28 | NUR ---
Behavior Intervention Response and Plan: BIRP Note: Behavior: Assumed Care of patient, patient located in Day Room at shift change. Patient exhibited the following behavior Wandering, Compliant, Disorganized. Brief assessment on rounds of vital signs, medication needs, lab studies, and pain. Treatment plan problems . Intervention: Patient assessed and the following interventions initiated safety checks 15 Minute Checks Cognitive Assessment , Head to toe Assessment , Medications. Response: After interactions and interventions patient responded in the following manner, Disorganized , Withdrawn ,Cooperative. Continue to assess behaviors and condition will continue to monitor throughout the shift as needed. Patient educated on ADL's, and hand hygiene. Plan: Continue to monitor Master Treatment Plan for patient's progress toward short term goals of Decreased Agitation, Decreased Aggression, ferry terminal supervisor goals to return to previous living setting vs placement. Continue to assess patient for changes in above assessment. Monitor for medication needs, pain, and safety concerns. Hourly rounding performed to ensure safe environment.
[2017-07-13 15:22] VITALS: BP 121/76
--- NOTE | 2017-07-13 16:05 | NUR ---
ACTIVITY THERAPY ASSESSMENT Completed based on observation and interview. Pt. was agreeable and willing to talk. He was talkative and believed he was waiting for an airplane tomorrow. He pointed at a closet across the riley and said those were the airplanes. He went on about his trip from different cities, his concerns about not getting paid. He stated he hasn't flown in over a year. Pt. walks the unit briskly a times and needs reminders to use his walker. He keeps to himself most of the time but can be around others. He shows little interests in groups. His shirt was tucked in and he has a very neat and tidy appearance. Pt. stated he enjoys golf, basketball, doing yard work and housework. He stated he can be flexible to a certain degree. Initial goal aimed to increase socialization and engagement: Pt.will participate in at least one group a day.
[2017-07-13] MEDS: ATORVASTATIN CALCIUM 10 MG TABLET. PO SCH (19:36)
[2017-07-13] MEDS: MIRTAZAPINE 7.5 MG TABLET. PO SCH (19:36)
--- NOTE | 2017-07-13 21:03 | PDOC ---
Exam Note: Lavon Note: Please also refer to the separate dictated note~for this date of service dictated separately.~Patient seen individually. Discussed the patient with Nursing staff reviewed the chart.~Reviewed interim history and current functioning. Reviewed vital signs,~Labs/ Radiology~and current medications noted below. Continue current treatment with the changes noted in the dictated addendum note Assessment: Vital Signs: Vital Signs Date Time Temp Pulse Resp B/P (MAP) Pulse Ox O2 Delivery O2 Flow Rate FiO2 07/13/17 15:22 97.7 87 18 121/76 (91) 93 Room Air 07/09/17 23:36 0.0 I&O Intake and Output 07/13/17 07:00 Intake Total 1560 ml Balance 1560 ml Intake Oral 1560 ml # Bowel Movements 1 Labs: Laboratory Tests Test 07/13/17 06:17 White Blood Count 7.1 x10^3/uL (4.0-11.0) Red Blood Count 4.18 x10^6/uL (4.30-5.70) L Hemoglobin 13.9 g/dL (13.0-17.5) Hematocrit 39.9 % (39.0-53.0) Mean Corpuscular Volume 96 fL (79-100) Mean Corpuscular Hemoglobin 33 pg (25-35) Mean Corpuscular Hemoglobin Concent 35 g/dL (31-37) Red Cell Distribution Width 13.5 % (11.5-14.5) Platelet Count 173 x10^3/uL (140-400) Neutrophils (%) (Auto) 68 % (31-73) Lymphocytes (%) (Auto) 21 % (24-48) L Monocytes (%) (Auto) 8 % (0-9) Eosinophils (%) (Auto) 2 % (0-3) Basophils (%) (Auto) 1 % (0-3) Neutrophils # (Auto) 4.8 x10^3uL (1.8-7.7) Lymphocytes # (Auto) 1.5 x10^3/uL (1.0-4.8) Monocytes # (Auto) 0.6 x10^3/uL (0.0-1.1) Eosinophils # (Auto) 0.2 x10^3/uL (0.0-0.7) Basophils # (Auto) 0.1 x10^3/uL (0.0-0.2) Sodium Level 143 mmol/L (136-145) Potassium Level 3.4 mmol/L (3.5-5.1) L Chloride Level 109 mmol/L (98-107) H Carbon Dioxide Level 28 mmol/L (21-32) Anion Gap 6 (6-14) Blood Urea Nitrogen 20 mg/dL (8-26) Creatinine 0.9 mg/dL (0.7-1.3) Estimated GFR (Cockcroft-Gault) 81.2 BUN/Creatinine Ratio 22 (6-20) H Glucose Level 95 mg/dL (70-99) Calcium Level 8.1 mg/dL (8.5-10.1) L Total Bilirubin 1.3 mg/dL (0.2-1.0) H Aspartate Amino Transferase (AST) 8 U/L (15-37) L Alanine Aminotransferase (ALT) 14 U/L (16-63) L Alkaline Phosphatase 45 U/L (46-116) L Total Protein 5.9 g/dL (6.4-8.2) L Albumin 2.9 g/dL (3.4-5.0) L Albumin/Globulin Ratio 1.0 (1.0-1.7) Valproic Acid Level 26 mcg/mL (50-100) L Valproic Acid Last Dose Date 07/12/17 Valproic Acid Last Dose Time 2100 Current Medications: Meds: Current Medications Sodium Chloride 1,000 ml @ 1,000 mls/hr 1X ONCE IV Last administered on at 21:19; Start 07/09/17 at 21:30; Stop 07/09/17 at 22:29; Status DC Acetaminophen (Tylenol) 650 mg PRN Q6HRS PRN PO PAIN / TEMP; Start 07/09/17 at 22:45 Multi-Ingredient Ointment (Analgesic [place]) 1 camryn PRN QID PRN TP MUSCLE PAIN; Start 07/09/17 at 22:45 Al Hydroxide/Mg Hydroxide (Mylanta Plus Xs) 15 ml PRN AFTMEALHC PRN PO DYSPEPSIA; Start 07/09/17 at 22:45 Magnesium Hydroxide (Milk Of Magnesia) 2,400 mg PRN QHS PRN PO CONSTIPATION; Start 07/09/17 at 22:45 Divalproex Sodium (Depakote Sprinkles) 125 mg DAILY PO Last administered on 07:33; Start 07/10/17 at 09:00; Stop 07/10/17 at 18:16; Status DC Donepezil HCl (Aricept) 10 mg DAILY PO Last administered on 07/13/17 09:32; Start 07/10/17 at 09:00 Memantine (Namenda) 10 mg BID PO Last administered on 07/13/17 19:36; Start at 09:00 Amlodipine Besylate (Norvasc) 10 mg DAILY PO Last administered on 07/13/17 09: 32; Start 07/10/17 at 09:00 Clonidine HCl (Catapres) 0.1 mg PRN BID PRN PO HTN; Start 07/09/17 at 23:15 Tamsulosin HCl (Flomax) 0.4 mg DAILY PO Last administered on 07/13/17 09:33; Start 07/10/17 at 09:00 Cyanocobalamin (Vitamin B-12) 50 mcg DAILY PO Last administered on 07/13/17 09 :34; Start 07/10/17 at 09:00 Lisinopril (Prinivil) 40 mg DAILY PO Last administered on 07/13/17 09:32; Start 07/10/17 at 09:00 Multivitamins/ Calcium (Thera-M Plus) 1 tab DAILY PO Last administered on 09:32; Start 07/10/17 at 09:00 Pneumococcal Polyvalent Vaccine (Pneumovax 23) 0.5 ml ONCE ONCE VAX IM Last administered on 07/10/17at 09:40; Start 07/10/17 at 09:00; Stop 07/10/17 at 09:01 ; Status DC Vitamin D (Vitamin D3) 50,000 unit WEEKLY PO Last administered on 07/10/17 14: 37; Start 07/10/17 at 15:00 Divalproex Sodium (Depakote Sprinkles) 250 mg BID PO Last administered on 09:32; Start 07/10/17 at 21:00; Stop 07/13/17 at 18:30; Status DC Mirtazapine (Remeron) 7.5 mg QHS PO Last administered on 07/13/17 19:36; Start 07/10/17 at 21:00 Atorvastatin Calcium (Lipitor) 10 mg QHS PO Last administered on 07/13/17 19: 36; Start 07/11/17 at 21:00 Divalproex Sodium (Depakote Sprinkles) 375 mg BID PO Last administered on 19:36; Start 07/13/17 at 21:00 Active Scripts Active Reported Clonidine Hcl 0.1 Mg Tablet 0.1 Mg PO PRN BID PRN Depakote Sprinkle (Divalproex Sodium) 125 Mg Cap.sprink 125 Mg PO DAILY Norvasc (Amlodipine Besylate) 10 Mg Tablet 10 Mg PO DAILY Vitamin B-12 (Cyanocobalamin (Vitamin B-12)) 50 Mcg Tablet 50 Mcg PO DAILY Multi-Vitamin Daily (Multivitamin) 1 Each Tablet 1 Tab PO DAILY Flomax (Tamsulosin Hcl) 0.4 Mg Cap.er.24h 0.4 Mg PO DAILY Namenda (Memantine Hcl) 10 Mg Tablet 10 Mg PO BID Lisinopril 40 Mg Tablet 40 Mg PO DAILY Aricept (Donepezil Hcl) 10 Mg Tablet 10 Mg PO DAILY I have reviewed the current psychotropics carefully including drug interactions. Risk benefit ratio favors no change other than as noted in my dictated progress note. Diagnosis: Problems: (1) Anxiety disorder (2) Impulse control disorder (3) Dementia, vascular, with depression (4) Dementia, vascular, with delusions (5) Dementia in Alzheimer's disease with depression (6) Dementia in Alzheimer's disease with delusions NEVILLE ANTONIO MD Jul 13, 2017 21:03
--- NOTE | 2017-07-14 00:32 | NUR ---
Behavior Intervention Response and Plan: BIRP Note: Behavior: Assumed Care of patient, patient located in Hallway at shift change. Patient exhibited the following behavior Restless, Disorganized, Compliant. Brief assessment on rounds of vital signs, medication needs, lab studies, and pain. Treatment plan problems Dementia with BD and Fall Risk. Intervention: Patient assessed and the following interventions initiated safety checks 15 Minute Checks Cognitive Assessment , Head to toe Assessment , Medications. Response: After interactions and interventions patient responded in the following manner, Calm , Compliant ,Cooperative. Continue to assess behaviors and condition will continue to monitor throughout the shift as needed. Patient educated on ADL's, and hand hygiene. Plan: Continue to monitor Master Treatment Plan for patient's progress toward short term goals of Decreased Agitation, Decreased Aggression, shelter goals to return to previous living setting vs placement. Continue to assess patient for changes in above assessment. Monitor for medication needs, pain, and safety concerns. Hourly rounding performed to ensure safe environment.
--- NOTE | 2017-07-14 02:34 | PN ---
DATE: 07/12/2017 PSYCHIATRIC PROGRESS NOTE This is a late entry of 07/12/2017 covers elements not covered in my initial note of 07/12/2017. I met with the patient in the evening of 07/12/2017. HISORY OF PRESENT ILLNESS: The patient has been somewhat delusional, wanting to leave things. [place] is [place], compliant with medications, slept well. REVIEW OF SYSTEMS: Ambulation impaired with walker. No CV, , pulmonary, eye, ENT system symptoms on review. MENTAL STATUS EXAM: Oriented to himself. Insight, judgment, recent and remote memory, attention, concentration, fund of knowledge poor, consistent with his diagnosis mentioned in my initial note. PLAN: Continue current psychotropics. Adjust further as clinically indicated. Check labs level on the Depakote 07/13/2017 and then adjust further. MAN Senthil ANTONIO MD DR: DUNCAN/regine JOB#: [id number] / [id number]
[2017-07-14 06:11] VITALS: BP 183/71
[2017-07-14] MEDS: MULTIVITAMIN with MINERAL TABLET. PO SCH (09:11)
[2017-07-14] MEDS: DONEPEZIL HCL 10 MG TABLET PO SCH (09:11)
[2017-07-14] MEDS: LISINOPRIL 20 MG TABLET PO SCH (09:12)
[2017-07-14] MEDS: MEMANTINE 10 MG TABLET. PO SCH ×2 (09:12→19:34)
[2017-07-14] MEDS: TAMSULOSIN 0.4 MG CAP.ER.24H. PO SCH (09:12)
[2017-07-14] MEDS: DIVALPROEX 125 MG CAP.SPRINK PO SCH ×2 (09:12→19:34)
[2017-07-14] MEDS: amLODIPine BESYLATE 10 MG TABLET PO SCH (09:13)
[2017-07-14] MEDS: CYANOCOBALAMIN (VITAMIN B-12) 100 MCG TABLET PO SCH (09:15)
--- NOTE | 2017-07-14 10:15 | NUR ---
Pt approached this RN in the hallway and asked if she could get pts shirt out of his closet. This RN asked why pt needed it pt stated "My suitcase is locked up in my closet and I missed my flight, actually the last four so I have been here for a few days and I have to catch my next flight." This RN informed pt that pt was actually in the hospital because he was having some difficult with his memory. Pt did not appear to become distraught by this news but stated "Oh, okay. How long will I be here?" This RN informed pt that the doctor was working on adjusting some of his medication so it might be a couple of days. Pt was understanding and continued walking down the hallway. Will continue to monitor.
--- NOTE | 2017-07-14 10:33 | NUR ---
SW called and left message for staff at pt facility.
--- NOTE | 2017-07-14 12:14 | NUR ---
SW spoke with pt facility regarding pt. SW provided an update and will speak with them after 's Treatment team.
--- NOTE | 2017-07-14 15:14 | NUR ---
Behavior Intervention Response and Plan: BIRP Note: Behavior: Assumed Care of patient, patient located in Patient Room at shift change. Patient exhibited the following behavior Calm, Compliant, Delusions. Brief assessment on rounds of vital signs, medication needs, lab studies, and pain. Treatment plan problems 1-2. Intervention: Patient assessed and the following interventions initiated safety checks 15 Minute Checks Cognitive Assessment , Head to toe Assessment , Medications. Response: After interactions and interventions patient responded in the following manner, Wandering , Cooperative ,Interactive. Continue to assess behaviors and condition will continue to monitor throughout the shift as needed. Patient educated on ADL's, and hand hygiene. 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 Continue to assess patient for changes in above assessment. Monitor for medication needs, pain, and safety concerns. Hourly rounding performed to ensure safe environment.
[2017-07-14 15:56] VITALS: BP 131/71
--- NOTE | 2017-07-14 18:06 | PN ---
DATE: 07/13/2017 PSYCHIATRIC PROGRESS NOTE This is a late entry for 07/13/2017, covers elements not covered in my initial note of 07/13/2017. SUBJECTIVE: I met with the patient in the evening of 07/13/2017. The patient slept 8 hours previous evening, somewhat delusional, confused, believes [place] is at the airport, walks fast, oblivious of anything and everything around him, somewhat paranoid, suspicious, as I met with him, labile. REVIEW OF SYSTEMS: No CV, , pulmonary, eye, ENT system symptoms on review. Gait unsteady with walker. MENTAL STATUS EXAM: Oriented to himself. Insight, judgment, recent and remote memory, attention, concentration, fund of knowledge poor, consistent with his diagnosis mentioned in my initial note. PLAN: Increase Depakote Sprinkles from 250 mg b.i.d. to 375 mg b.i.d. Check CBC, CMP, valproic acid level in 3 days since current level is 26 on 250 mg b.i.d. Maintain Aricept, Namenda, along with Remeron for now. MAN Senthil ANTONIO MD DR: DUNCAN/regine JOB#: [id number] / [id number]
[2017-07-14] MEDS: ATORVASTATIN CALCIUM 10 MG TABLET. PO SCH (19:34)
[2017-07-14] MEDS: MIRTAZAPINE 7.5 MG TABLET. PO SCH (19:34)
--- NOTE | 2017-07-14 20:51 | PDOC ---
Exam Note: Lavon Note: Please also refer to the separate dictated note~for this date of service dictated separately.~Patient seen individually. Discussed the patient with Nursing staff reviewed the chart.~Reviewed interim history and current functioning. Reviewed vital signs,~Labs/ Radiology~and current medications noted below. Continue current treatment with the changes noted in the dictated addendum note Assessment: Vital Signs: Vital Signs Date Time Temp Pulse Resp B/P (MAP) Pulse Ox O2 Delivery O2 Flow Rate FiO2 07/14/17 15:56 97.9 88 20 131/71 (91) 94 07/13/17 15:22 Room Air 07/09/17 23:36 0.0 I&O Intake and Output 07/14/17 07:00 Intake Total 1200 ml Balance 1200 ml Intake Oral 1200 ml Current Medications: Meds: Current Medications Sodium Chloride 1,000 ml @ 1,000 mls/hr 1X ONCE IV Last administered on at 21:19; Start 07/09/17 at 21:30; Stop 07/09/17 at 22:29; Status DC Acetaminophen (Tylenol) 650 mg PRN Q6HRS PRN PO PAIN / TEMP; Start 07/09/17 at 22:45 Multi-Ingredient Ointment (Analgesic [place]) 1 camryn PRN QID PRN TP MUSCLE PAIN; Start 07/09/17 at 22:45 Al Hydroxide/Mg Hydroxide (Mylanta Plus Xs) 15 ml PRN AFTMEALHC PRN PO DYSPEPSIA; Start 07/09/17 at 22:45 Magnesium Hydroxide (Milk Of Magnesia) 2,400 mg PRN QHS PRN PO CONSTIPATION; Start 07/09/17 at 22:45 Divalproex Sodium (Depakote Sprinkles) 125 mg DAILY PO Last administered on at 07:33; Start 07/10/17 at 09:00; Stop 07/10/17 at 18:16; Status DC Donepezil HCl (Aricept) 10 mg DAILY PO Last administered on 07/14/17at 09:11; Start 07/10/17 at 09:00 Memantine (Namenda) 10 mg BID PO Last administered on 07/14/17at 19:34; Start at 09:00 Amlodipine Besylate (Norvasc) 10 mg DAILY PO Last administered on 07/14/17 09: 13; Start 07/10/17 at 09:00 Clonidine HCl (Catapres) 0.1 mg PRN BID PRN PO HTN; Start 07/09/17 at 23:15 Tamsulosin HCl (Flomax) 0.4 mg DAILY PO Last administered on 07/14/17 09:12; Start 07/10/17 at 09:00 Cyanocobalamin (Vitamin B-12) 50 mcg DAILY PO Last administered on 07/14/17 09 :15; Start 07/10/17 at 09:00 Lisinopril (Prinivil) 40 mg DAILY PO Last administered on 07/14/17 09:12; Start 07/10/17 at 09:00 Multivitamins/ Calcium (Thera-M Plus) 1 tab DAILY PO Last administered on 09:11; Start 07/10/17 at 09:00 Pneumococcal Polyvalent Vaccine (Pneumovax 23) 0.5 ml ONCE ONCE VAX IM Last administered on 07/10/17at 09:40; Start 07/10/17 at 09:00; Stop 07/10/17 at 09:01 ; Status DC Vitamin D (Vitamin D3) 50,000 unit WEEKLY PO Last administered on 07/10/17at 14: 37; Start 07/10/17 at 15:00 Divalproex Sodium (Depakote Sprinkles) 250 mg BID PO Last administered on 09:32; Start 07/10/17 at 21:00; Stop 07/13/17 at 18:30; Status DC Mirtazapine (Remeron) 7.5 mg QHS PO Last administered on 07/14/17 19:34; Start 07/10/17 at 21:00 Atorvastatin Calcium (Lipitor) 10 mg QHS PO Last administered on 07/14/17 19: 34; Start 07/11/17 at 21:00 Divalproex Sodium (Depakote Sprinkles) 375 mg BID PO Last administered on 19:34; Start 07/13/17 at 21:00 Active Scripts Active Reported Clonidine Hcl 0.1 Mg Tablet 0.1 Mg PO PRN BID PRN Depakote Sprinkle (Divalproex Sodium) 125 Mg Cap.sprink 125 Mg PO DAILY Norvasc (Amlodipine Besylate) 10 Mg Tablet 10 Mg PO DAILY Vitamin B-12 (Cyanocobalamin (Vitamin B-12)) 50 Mcg Tablet 50 Mcg PO DAILY Multi-Vitamin Daily (Multivitamin) 1 Each Tablet 1 Tab PO DAILY Flomax (Tamsulosin Hcl) 0.4 Mg Cap.er.24h 0.4 Mg PO DAILY Namenda (Memantine Hcl) 10 Mg Tablet 10 Mg PO BID Lisinopril 40 Mg Tablet 40 Mg PO DAILY Aricept (Donepezil Hcl) 10 Mg Tablet 10 Mg PO DAILY I have reviewed the current psychotropics carefully including drug interactions. Risk benefit ratio favors no change other than as noted in my dictated progress note. Diagnosis: Problems: (1) Anxiety disorder (2) Impulse control disorder (3) Dementia, vascular, with depression (4) Dementia, vascular, with delusions (5) Dementia in Alzheimer's disease with depression (6) Dementia in Alzheimer's disease with delusions NEVILLE ANTONIO MD Jul 14, 2017 20:51
--- NOTE | 2017-07-14 23:20 | NUR ---
Behavior Intervention Response and Plan: BIRP Note: Behavior: Assumed Care of patient, patient located in Hallway at shift change. Patient exhibited the following behavior Restless, Disorganized, Compliant. Brief assessment on rounds of vital signs, medication needs, lab studies, and pain. Treatment plan problems Dementia with BD and Fall Risk. Intervention: Patient assessed and the following interventions initiated safety checks 15 Minute Checks Cognitive Assessment , Head to toe Assessment , Medications. Response: After interactions and interventions patient responded in the following manner, Calm , Compliant ,Cooperative. Continue to assess behaviors and condition will continue to monitor throughout the shift as needed. Patient educated on ADL's, and hand hygiene. Plan: Continue to monitor Master Treatment Plan for patient's progress toward short term goals of Decreased Agitation, Decreased Aggression, [facility] goals to return to previous living setting vs placement. Continue to assess patient for changes in above assessment. Monitor for medication needs, pain, and safety concerns. Hourly rounding performed to ensure safe environment.
[2017-07-15 05:56] VITALS: BP 137/73
[2017-07-15] MEDS: DONEPEZIL HCL 10 MG TABLET PO SCH (09:52)
[2017-07-15] MEDS: DIVALPROEX 125 MG CAP.SPRINK PO SCH ×2 (09:53→20:19)
[2017-07-15] MEDS: MULTIVITAMIN with MINERAL TABLET. PO SCH (09:54)
[2017-07-15] MEDS: TAMSULOSIN 0.4 MG CAP.ER.24H. PO SCH (09:54)
[2017-07-15] MEDS: LISINOPRIL 20 MG TABLET PO SCH (09:54)
[2017-07-15] MEDS: amLODIPine BESYLATE 10 MG TABLET PO SCH (09:55)
[2017-07-15] MEDS: MEMANTINE 10 MG TABLET. PO SCH ×2 (09:55→20:20)
[2017-07-15] MEDS: CYANOCOBALAMIN (VITAMIN B-12) 100 MCG TABLET PO SCH (09:56)
--- NOTE | 2017-07-15 10:42 | NUR ---
Behavior Intervention Response and Plan: BIRP Note: Behavior: Assumed Care of patient, patient located in Day Room at shift change. Patient exhibited the following behavior Interactive, Calm, Compliant. Brief assessment on rounds of vital signs, medication needs, lab studies, and pain. Treatment plan problems . Intervention: Patient assessed and the following interventions initiated safety checks 15 Minute Checks Cognitive Assessment , Head to toe Assessment , Medications. Response: After interactions and interventions patient responded in the following manner, Calm , Defensive ,Cooperative. Continue to assess behaviors and condition will continue to monitor throughout the shift as needed. Patient educated on ADL's, and hand hygiene. 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 Continue to assess patient for changes in above assessment. Monitor for medication needs, pain, and safety concerns. Hourly rounding performed to ensure safe environment.
--- NOTE | 2017-07-15 15:00 | NUR ---
WEEKLY THERAPEUTIC RECREATION NOTE Date of Admission: Date of AT Assessment: Goal aimed: to increase socialization and engagement Initial goal: Pt.will participate in at least one group a day. Weekly progress towards goal: did not meet Group participation level: minimal Behaviors observed: not around group a lot but occasional groups, talks about planes and trips, walks quickly, forgets walker, mostly calm and pleasant. Plan: no changes to goal
[2017-07-15 16:00] VITALS: BP 114/69
--- NOTE | 2017-07-15 19:46 | PN ---
DATE: 07/14/2017 This late entry 07/14/2017 covers elements not covered in my initial note 07/14/2017. Met with the patient in the evening of 07/14/2017. The patient slept 6-3/4 hours previous evening, had a better day, compliant with medications, delusional in the morning and in the evening somewhat suspicious. REVIEW OF SYSTEMS: No CV, , pulmonary, eye, ENT system symptoms on review. Reliability poor. MENTAL STATUS EXAM: Oriented to himself. Insight, judgment, recent and remote memory, attention, concentration, fund of knowledge poor, consistent with his diagnosis mentioned in my initial note. PLAN: Continue current psychotropics, may need to adjust Depakote further depending on the next labs level to be done on 07/16/2017. Continue Remeron 7.5 at bedtime. MAN Senthil ANTONIO MD DR: DUNCAN/regine JOB#: [id number] / [id number]
[2017-07-15] MEDS: MIRTAZAPINE 7.5 MG TABLET. PO SCH (20:19)
[2017-07-15] MEDS: ATORVASTATIN CALCIUM 10 MG TABLET. PO SCH (20:19)
--- NOTE | 2017-07-15 21:00 | NUR ---
Behavior Intervention Response and Plan: BIRP Note: Behavior: Assumed Care of patient, patient located in Day Room at shift change. Patient exhibited the following behavior Calm, Cooperative, Interactive. Brief assessment on rounds of vital signs, medication needs, lab studies, and pain. Treatment plan problems 1-3. Intervention: Patient assessed and the following interventions initiated safety checks 15 Minute Checks Head to toe Assessment , Medications , ADL's. Response: After interactions and interventions patient responded in the following manner, Calm , Compliant ,Cooperative. Continue to assess behaviors and condition will continue to monitor throughout the shift as needed. Patient educated on ADL's, and hand hygiene. 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 Continue to assess patient for changes in above assessment. Monitor for medication needs, pain, and safety concerns. Hourly rounding performed to ensure safe environment.
--- NOTE | 2017-07-15 21:01 | PDOC ---
Exam Note: Lavon Note: Please also refer to the separate dictated note~for this date of service dictated separately.~Patient seen individually. Discussed the patient with Nursing staff reviewed the chart.~Reviewed interim history and current functioning. Reviewed vital signs,~Labs/ Radiology~and current medications noted below. Continue current treatment with the changes noted in the dictated addendum note Assessment: Vital Signs: Vital Signs Date Time Temp Pulse Resp B/P (MAP) Pulse Ox O2 Delivery O2 Flow Rate FiO2 07/15/17 16:00 98.0 82 19 114/69 (84) 95 07/13/17 15:22 Room Air 07/09/17 23:36 0.0 I&O Intake and Output 07/15/17 07:00 Intake Total 1080 ml Balance 1080 ml Intake Oral 1080 ml Current Medications: Meds: Current Medications Sodium Chloride 1,000 ml @ 1,000 mls/hr 1X ONCE IV Last administered on at 21:19; Start 07/09/17 at 21:30; Stop 07/09/17 at 22:29; Status DC Acetaminophen (Tylenol) 650 mg PRN Q6HRS PRN PO PAIN / TEMP; Start 07/09/17 at 22:45 Multi-Ingredient Ointment (Analgesic [place]) 1 camryn PRN QID PRN TP MUSCLE PAIN; Start 07/09/17 at 22:45 Al Hydroxide/Mg Hydroxide (Mylanta Plus Xs) 15 ml PRN AFTMEALHC PRN PO DYSPEPSIA; Start 07/09/17 at 22:45 Magnesium Hydroxide (Milk Of Magnesia) 2,400 mg PRN QHS PRN PO CONSTIPATION; Start 07/09/17 at 22:45 Divalproex Sodium (Depakote Sprinkles) 125 mg DAILY PO Last administered on at 07:33; Start 07/10/17 at 09:00; Stop 07/10/17 at 18:16; Status DC Donepezil HCl (Aricept) 10 mg DAILY PO Last administered on 07/15/17at 09:52; Start 07/10/17 at 09:00 Memantine (Namenda) 10 mg BID PO Last administered on 07/15/17at 20:20; Start at 09:00 Amlodipine Besylate (Norvasc) 10 mg DAILY PO Last administered on 07/15/17 09: 55; Start 07/10/17 at 09:00 Clonidine HCl (Catapres) 0.1 mg PRN BID PRN PO HTN; Start 07/09/17 at 23:15 Tamsulosin HCl (Flomax) 0.4 mg DAILY PO Last administered on 07/15/17 09:54; Start 07/10/17 at 09:00 Cyanocobalamin (Vitamin B-12) 50 mcg DAILY PO Last administered on 07/15/17 09 :56; Start 07/10/17 at 09:00 Lisinopril (Prinivil) 40 mg DAILY PO Last administered on 07/15/17 09:54; Start 07/10/17 at 09:00 Multivitamins/ Calcium (Thera-M Plus) 1 tab DAILY PO Last administered on 09:54; Start 07/10/17 at 09:00 Pneumococcal Polyvalent Vaccine (Pneumovax 23) 0.5 ml ONCE ONCE VAX IM Last administered on 07/10/17 09:40; Start 07/10/17 at 09:00; Stop 07/10/17 at 09:01 ; Status DC Vitamin D (Vitamin D3) 50,000 unit WEEKLY PO Last administered on 07/10/17 14: 37; Start 07/10/17 at 15:00 Divalproex Sodium (Depakote Sprinkles) 250 mg BID PO Last administered on 09:32; Start 07/10/17 at 21:00; Stop 07/13/17 at 18:30; Status DC Mirtazapine (Remeron) 7.5 mg QHS PO Last administered on 07/15/17 20:19; Start 07/10/17 at 21:00 Atorvastatin Calcium (Lipitor) 10 mg QHS PO Last administered on 07/15/17 20: 19; Start 07/11/17 at 21:00 Divalproex Sodium (Depakote Sprinkles) 375 mg BID PO Last administered on 20:19; Start 07/13/17 at 21:00 Active Scripts Active Reported Clonidine Hcl 0.1 Mg Tablet 0.1 Mg PO PRN BID PRN Depakote Sprinkle (Divalproex Sodium) 125 Mg Cap.sprink 125 Mg PO DAILY Norvasc (Amlodipine Besylate) 10 Mg Tablet 10 Mg PO DAILY Vitamin B-12 (Cyanocobalamin (Vitamin B-12)) 50 Mcg Tablet 50 Mcg PO DAILY Multi-Vitamin Daily (Multivitamin) 1 Each Tablet 1 Tab PO DAILY Flomax (Tamsulosin Hcl) 0.4 Mg Cap.er.24h 0.4 Mg PO DAILY Namenda (Memantine Hcl) 10 Mg Tablet 10 Mg PO BID Lisinopril 40 Mg Tablet 40 Mg PO DAILY Aricept (Donepezil Hcl) 10 Mg Tablet 10 Mg PO DAILY I have reviewed the current psychotropics carefully including drug interactions. Risk benefit ratio favors no change other than as noted in my dictated progress note. Diagnosis: Problems: (1) Anxiety disorder (2) Impulse control disorder (3) Dementia, vascular, with depression (4) Dementia, vascular, with delusions (5) Dementia in Alzheimer's disease with depression (6) Dementia in Alzheimer's disease with delusions NEVILLE ANTONIO MD Jul 15, 2017 21:01
[2017-07-16 05:59] VITALS: BP 138/57
[2017-07-16 08:05] LABS: ALBUMIN 3.2 g/dL (3.4-5.0); ALK PHOS 49 U/L (46-116); ALT (SGPT) 20 U/L (16-63); ANION GAP 9 (6-14); AST (SGOT) 13 U/L (15-37); BLOOD UREA NITROGEN 21 mg/dL (8-26); BUN/CREATININE RATIO 19 (6-20); CALCIUM 8.5 mg/dL (8.5-10.1); CARBON DIOXIDE 28 mmol/L (21-32); CHLORIDE 107 mmol/L (98-107); CREATININE 1.1 mg/dL (0.7-1.3); GFR 64.4; GLUCOSE 94 mg/dL (70-99); MAGNESIUM 2.2 mg/dL (1.8-2.4); POTASSIUM 3.5 mmol/L (3.5-5.1); SODIUM 144 mmol/L (136-145); TOTAL BILIRUBIN 1.1 mg/dL (0.2-1.0); TOTAL PROTEIN 6.4 g/dL (6.4-8.2)
[2017-07-16 08:14] LABS: BASO # 0.1 x10^3/uL (0.0-0.2); BASO % 1 % (0-3); EOS # 0.2 x10^3/uL (0.0-0.7); EOS % 3 % (0-3); HEMATOCRIT 41.1 % (39.0-53.0); HEMOGLOBIN 14.4 g/dL (13.0-17.5); LYMPH # 1.4 x10^3/uL (1.0-4.8); LYMPH % 20 % (24-48); MEAN CORPUSCULAR HEMOGLOBIN 34 pg (25-35); MEAN CORPUSCULAR HGB CONC 35 g/dL (31-37); MEAN CORPUSCULAR VOLUME 96 fL (79-100); MONO # 0.6 x10^3/uL (0.0-1.1); MONO % 8 % (0-9); NEUT # 4.7 x10^3uL (1.8-7.7); NEUT % 68 % (31-73); PLATELET COUNT 191 x10^3/uL (140-400); RED BLOOD COUNT 4.28 x10^6/uL (4.30-5.70); VAL ACID 45 mcg/mL (50-100); WHITE BLOOD COUNT 6.9 x10^3/uL (4.0-11.0)
[2017-07-16] MEDS: DIVALPROEX 125 MG CAP.SPRINK PO SCH ×2 (08:44→16:59)
[2017-07-16] MEDS: LISINOPRIL 20 MG TABLET PO SCH (08:45)
[2017-07-16] MEDS: MULTIVITAMIN with MINERAL TABLET. PO SCH (08:45)
[2017-07-16] MEDS: DONEPEZIL HCL 10 MG TABLET PO SCH (08:45)
[2017-07-16] MEDS: TAMSULOSIN 0.4 MG CAP.ER.24H. PO SCH (08:45)
[2017-07-16] MEDS: MEMANTINE 10 MG TABLET. PO SCH ×2 (08:45→19:52)
[2017-07-16] MEDS: amLODIPine BESYLATE 10 MG TABLET PO SCH (08:46)
[2017-07-16] MEDS: CYANOCOBALAMIN (VITAMIN B-12) 100 MCG TABLET PO SCH (08:47)
--- NOTE | 2017-07-16 16:00 | NUR ---
Behavior Intervention Response and Plan: BIRP Note: Behavior: Assumed Care of patient, patient located in Hallway at shift change. Patient exhibited the following behavior Calm, Disorganized, Cooperative. Brief assessment on rounds of vital signs, medication needs, lab studies, and pain. Treatment plan problems Danger to others and fall risk. Intervention: Patient assessed and the following interventions initiated safety checks 15 Minute Checks Head to toe Assessment , Cognitive Assessment , Medications. Response: After interactions and interventions patient responded in the following manner, Calm , Disorganized ,Cooperative. Continue to assess behaviors and condition will continue to monitor throughout the shift as needed. Patient educated on ADL's, and hand hygiene. 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 Continue to assess patient for changes in above assessment. Monitor for medication needs, pain, and safety concerns. Hourly rounding performed to ensure safe environment.
[2017-07-16 16:06] VITALS: BP 146/79
[2017-07-16] MEDS: ATORVASTATIN CALCIUM 10 MG TABLET. PO SCH (19:52)
[2017-07-16] MEDS: MIRTAZAPINE 7.5 MG TABLET. PO SCH (19:52)
--- NOTE | 2017-07-16 21:05 | PDOC ---
Exam Note: Lavon Note: Please also refer to the separate dictated note~for this date of service dictated separately.~Patient seen individually. Discussed the patient with Nursing staff reviewed the chart.~Reviewed interim history and current functioning. Reviewed vital signs,~Labs/ Radiology~and current medications noted below. Continue current treatment with the changes noted in the dictated addendum note Assessment: Vital Signs: Vital Signs Date Time Temp Pulse Resp B/P (MAP) Pulse Ox O2 Delivery O2 Flow Rate FiO2 07/16/17 16:06 98.6 84 20 146/79 (101) 95 07/13/17 15:22 Room Air I&O Intake and Output 07/16/17 07:00 Intake Total 1200 ml Balance 1200 ml Intake Oral 1200 ml # Voids 1 Labs: Laboratory Tests Test 07/16/17 07:05 White Blood Count 6.9 x10^3/uL (4.0-11.0) Red Blood Count 4.28 x10^6/uL (4.30-5.70) L Hemoglobin 14.4 g/dL (13.0-17.5) Hematocrit 41.1 % (39.0-53.0) Mean Corpuscular Volume 96 fL (79-100) Mean Corpuscular Hemoglobin 34 pg (25-35) Mean Corpuscular Hemoglobin Concent 35 g/dL (31-37) Red Cell Distribution Width 13.0 % (11.5-14.5) Platelet Count 191 x10^3/uL (140-400) Neutrophils (%) (Auto) 68 % (31-73) Lymphocytes (%) (Auto) 20 % (24-48) L Monocytes (%) (Auto) 8 % (0-9) Eosinophils (%) (Auto) 3 % (0-3) Basophils (%) (Auto) 1 % (0-3) Neutrophils # (Auto) 4.7 x10^3uL (1.8-7.7) Lymphocytes # (Auto) 1.4 x10^3/uL (1.0-4.8) Monocytes # (Auto) 0.6 x10^3/uL (0.0-1.1) Eosinophils # (Auto) 0.2 x10^3/uL (0.0-0.7) Basophils # (Auto) 0.1 x10^3/uL (0.0-0.2) Sodium Level 144 mmol/L (136-145) Potassium Level 3.5 mmol/L (3.5-5.1) Chloride Level 107 mmol/L (98-107) Carbon Dioxide Level 28 mmol/L (21-32) Anion Gap 9 (6-14) Blood Urea Nitrogen 21 mg/dL (8-26) Creatinine 1.1 mg/dL (0.7-1.3) Estimated GFR (Cockcroft-Gault) 64.4 BUN/Creatinine Ratio 19 (6-20) Glucose Level 94 mg/dL (70-99) Calcium Level 8.5 mg/dL (8.5-10.1) Magnesium Level 2.2 mg/dL (1.8-2.4) Total Bilirubin 1.1 mg/dL (0.2-1.0) H Aspartate Amino Transferase (AST) 13 U/L (15-37) L Alanine Aminotransferase (ALT) 20 U/L (16-63) Alkaline Phosphatase 49 U/L (46-116) Total Protein 6.4 g/dL (6.4-8.2) Albumin 3.2 g/dL (3.4-5.0) L Albumin/Globulin Ratio 1.0 (1.0-1.7) Valproic Acid Level 45 mcg/mL (50-100) L Valproic Acid Last Dose Date 07/15/17 Valproic Acid Last Dose Time 2100 Current Medications: Meds: Current Medications Sodium Chloride 1,000 ml @ 1,000 mls/hr 1X ONCE IV Last administered on at 21:19; Start 07/09/17 at 21:30; Stop 07/09/17 at 22:29; Status DC Acetaminophen (Tylenol) 650 mg PRN Q6HRS PRN PO PAIN / TEMP; Start 07/09/17 at 22:45 Multi-Ingredient Ointment (Analgesic [place]) 1 camryn PRN QID PRN TP MUSCLE PAIN; Start 07/09/17 at 22:45 Al Hydroxide/Mg Hydroxide (Mylanta Plus Xs) 15 ml PRN AFTMEALHC PRN PO DYSPEPSIA; Start 07/09/17 at 22:45 Magnesium Hydroxide (Milk Of Magnesia) 2,400 mg PRN QHS PRN PO CONSTIPATION; Start 07/09/17 at 22:45 Divalproex Sodium (Depakote Sprinkles) 125 mg DAILY PO Last administered on 07:33; Start 07/10/17 at 09:00; Stop 07/10/17 at 18:16; Status DC Donepezil HCl (Aricept) 10 mg DAILY PO Last administered on 07/16/17 08:45; Start 07/10/17 at 09:00 Memantine (Namenda) 10 mg BID PO Last administered on 07/16/17 19:52; Start at 09:00 Amlodipine Besylate (Norvasc) 10 mg DAILY PO Last administered on 07/16/17 08: 46; Start 07/10/17 at 09:00 Clonidine HCl (Catapres) 0.1 mg PRN BID PRN PO HTN; Start 07/09/17 at 23:15 Tamsulosin HCl (Flomax) 0.4 mg DAILY PO Last administered on 07/16/17 08:45; Start 07/10/17 at 09:00 Cyanocobalamin (Vitamin B-12) 50 mcg DAILY PO Last administered on 07/16/17 08 :47; Start 07/10/17 at 09:00 Lisinopril (Prinivil) 40 mg DAILY PO Last administered on 07/16/17 08:45; Start 07/10/17 at 09:00 Multivitamins/ Calcium (Thera-M Plus) 1 tab DAILY PO Last administered on 08:45; Start 07/10/17 at 09:00 Pneumococcal Polyvalent Vaccine (Pneumovax 23) 0.5 ml ONCE ONCE VAX IM Last administered on 07/10/17at 09:40; Start 07/10/17 at 09:00; Stop 07/10/17 at 09:01 ; Status DC Vitamin D (Vitamin D3) 50,000 unit WEEKLY PO Last administered on 07/10/17 14: 37; Start 07/10/17 at 15:00 Divalproex Sodium (Depakote Sprinkles) 250 mg BID PO Last administered on 09:32; Start 07/10/17 at 21:00; Stop 07/13/17 at 18:30; Status DC Mirtazapine (Remeron) 7.5 mg QHS PO Last administered on 3/22/18at 19:52; Start 07/10/17 at 21:00 Atorvastatin Calcium (Lipitor) 10 mg QHS PO Last administered on 07/16/17at 19: 52; Start 07/11/17 at 21:00 Divalproex Sodium (Depakote Sprinkles) 375 mg BID PO Last administered on at 08:44; Start 07/13/17 at 21:00; Stop 07/16/17 at 10:59; Status DC Divalproex Sodium (Depakote Sprinkles) 500 mg BID@0900,1700 PO Last administered on 07/16/17at 16:59; Start 07/16/17 at 17:00 Active Scripts Active Reported Clonidine Hcl 0.1 Mg Tablet 0.1 Mg PO PRN BID PRN Depakote Sprinkle (Divalproex Sodium) 125 Mg Cap.sprink 125 Mg PO DAILY Norvasc (Amlodipine Besylate) 10 Mg Tablet 10 Mg PO DAILY Vitamin B-12 (Cyanocobalamin (Vitamin B-12)) 50 Mcg Tablet 50 Mcg PO DAILY Multi-Vitamin Daily (Multivitamin) 1 Each Tablet 1 Tab PO DAILY Flomax (Tamsulosin Hcl) 0.4 Mg Cap.er.24h 0.4 Mg PO DAILY Namenda (Memantine Hcl) 10 Mg Tablet 10 Mg PO BID Lisinopril 40 Mg Tablet 40 Mg PO DAILY Aricept (Donepezil Hcl) 10 Mg Tablet 10 Mg PO DAILY I have reviewed the current psychotropics carefully including drug interactions. Risk benefit ratio favors no change other than as noted in my dictated progress note. Diagnosis: Problems: (1) Anxiety disorder (2) Impulse control disorder (3) Dementia, vascular, with depression (4) Dementia, vascular, with delusions (5) Dementia in Alzheimer's disease with depression (6) Dementia in Alzheimer's disease with delusions NEVILLE ANTONIO MD Jul 16, 2017 21:05
--- NOTE | 2017-07-16 21:41 | NUR ---
Behavior Intervention Response and Plan: BIRP Note: Behavior: Assumed Care of patient, patient located in Hallway at shift change. Patient exhibited the following behavior Restless, Disorganized, Compliant. Brief assessment on rounds of vital signs, medication needs, lab studies, and pain. Treatment plan problems Dementia with BD and Fall Risk. Intervention: Patient assessed and the following interventions initiated safety checks 15 Minute Checks Cognitive Assessment , Head to toe Assessment , Medications. Response: After interactions and interventions patient responded in the following manner, Calm , Compliant ,Cooperative. Continue to assess behaviors and condition will continue to monitor throughout the shift as needed. Patient educated on ADL's, and hand hygiene. Plan: Continue to monitor Master Treatment Plan for patient's progress toward short term goals of Decreased Agitation, Decreased Aggression, snf goals to return to previous living setting vs placement. Continue to assess patient for changes in above assessment. Monitor for medication needs, pain, and safety concerns. Hourly rounding performed to ensure safe environment.
[2017-07-17 05:58] VITALS: BP 138/74
[2017-07-17] MEDS: DIVALPROEX 125 MG CAP.SPRINK PO SCH ×2 (08:05→17:36)
[2017-07-17] MEDS: amLODIPine BESYLATE 10 MG TABLET PO SCH (08:05)
[2017-07-17] MEDS: MULTIVITAMIN with MINERAL TABLET. PO SCH (08:05)
[2017-07-17] MEDS: TAMSULOSIN 0.4 MG CAP.ER.24H. PO SCH (08:05)
[2017-07-17] MEDS: MEMANTINE 10 MG TABLET. PO SCH ×2 (08:05→19:39)
[2017-07-17] MEDS: DONEPEZIL HCL 10 MG TABLET PO SCH (08:05)
[2017-07-17] MEDS: LISINOPRIL 20 MG TABLET PO SCH (08:07)
[2017-07-17] MEDS: CHOLECALCIFEROL (VITAMIN D3) 50,000 UNIT CAPSULE PO SCH (08:08)
[2017-07-17] MEDS: CYANOCOBALAMIN (VITAMIN B-12) 100 MCG TABLET PO SCH (08:08)
--- NOTE | 2017-07-17 09:00 | NUR ---
Behavior Intervention Response and Plan: BIRP Note: Behavior: Assumed Care of patient, patient located in Dining Room at shift change. Patient exhibited the following behavior Disorganized, Wandering, Compliant. Brief assessment on rounds of vital signs, medication needs, lab studies, and pain. Treatment plan problems . Intervention: Patient assessed and the following interventions initiated safety checks 15 Minute Checks Cognitive Assessment , Head to toe Assessment , Medications. Response: After interactions and interventions patient responded in the following manner, Compliant , Compliant ,Compliant. Continue to assess behaviors and condition will continue to monitor throughout the shift as needed. Patient educated on ADL's, and hand hygiene. 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 Continue to assess patient for changes in above assessment. Monitor for medication needs, pain, and safety concerns. Hourly rounding performed to ensure safe environment.
--- NOTE | 2017-07-17 10:19 | PN ---
DATE: 07/15/2017 PSYCHIATRIC PROGRESS NOTE This is a late entry 07/15/2017, covers elements not covered in my initial note 07/15/2017. SUBJECTIVE: I met with the patient the evening of 07/15/2017. The patient slept 7-1/2 hours previous evening. Morning of 07/15/2017 he seems more oriented, knew why he was here, which is quite an improvement for him, little more confused with sundowning in the evening. REVIEW OF SYSTEMS: Ambulation impaired with walker. No CV, , pulmonary, eye system symptoms on review. MENTAL STATUS EXAM: Oriented to himself, situation at times. Speech has some latency, coherent. Abstraction fair, computation impaired, language function intact. Mood and affect showing improvement, less paranoid, less psychotic. LABORATORY DATA: Reviewed. IMPRESSION: Major neurocognitive disorder, Alzheimer, vascular with delusion, depression, major depressive disorder with psychotic features. Rest unchanged. PLAN: Continue current psychotropics. Adjust as indicated. NEVILLE ANTONIO MD DR: DUNCAN/regine JOB#: [id number] / [id number]
--- NOTE | 2017-07-17 14:47 | PN ---
DATE: 07/16/2017 This is a late entry for 07/16/2017 and covers elements not covered in my initial note of 07/16/2017. SUBJECTIVE: I met with the patient evening of 07/16/2017. The patient slept 7 hours previous evening. The patient was staffed at a treatment team meeting with the entire team morning of 07/16/2017. The patient's , Jonatan and daughter, Barbara attended the conference. I met with him individually evening of 07/16/2017. Slept 7 hours previous night. Family indicated that while at [facility], he would recognize each family member. At admission, he was quite agitated, anxious, walking fast, all of that seems to be improving. He does get more confused in the evening, little more oriented during the day. REVIEW OF SYSTEMS: Ambulation impaired with walker. No CV, , pulmonary, eye system symptoms on review. Reliability poor. MENTAL STATUS EXAM: Oriented to himself. Insight, judgment, recent and remote memory, attention, concentration, fund of knowledge poor, consistent with his diagnosis as mentioned in my initial note. IMPRESSION: Major neurocognitive disorder, Alzheimer, vascular with depression, delusion, behavioral disturbance; anxiety disorder, unspecified; impulse control disorder, unspecified. PLAN: Valproic acid level on 07/16/2017 was 45 on Depakote Sprinkles 375 mg b.i.d. We will increase this to 500 mg b.i.d. Check CBC, CMP, valproic acid level in 3 days. Continue Aricept, Namenda, along with Remeron. Adjust as clinically indicated. MAN Senthil ANTONIO MD DR: DUNCAN/regine JOB#: [id number] / [id number]
--- NOTE | 2017-07-17 15:48 | NUR ---
pt up adl to meals. in halls and out to day room at times. compliant with meds and cares. still occasionally asks for the airport and flight plan.
[2017-07-17 16:15] VITALS: BP 166/74
[2017-07-17] MEDS: MIRTAZAPINE 7.5 MG TABLET. PO SCH (19:39)
[2017-07-17] MEDS: ATORVASTATIN CALCIUM 10 MG TABLET. PO SCH (19:39)
--- NOTE | 2017-07-17 21:05 | PDOC ---
Exam Note: Lavon Note: Please also refer to the separate dictated note~for this date of service dictated separately.~Patient seen individually. Discussed the patient with Nursing staff reviewed the chart.~Reviewed interim history and current functioning. Reviewed vital signs,~Labs/ Radiology~and current medications noted below. Continue current treatment with the changes noted in the dictated addendum note Assessment: Vital Signs: Vital Signs Date Time Temp Pulse Resp B/P (MAP) Pulse Ox O2 Delivery O2 Flow Rate FiO2 07/17/17 16:15 98.2 83 16 166/74 (104) 95 07/13/17 15:22 Room Air I&O Intake and Output 07/17/17 07:00 Intake Total 1080 ml Balance 1080 ml Intake Oral 1080 ml Current Medications: Meds: Current Medications Sodium Chloride 1,000 ml @ 1,000 mls/hr 1X ONCE IV Last administered on at 21:19; Start 07/09/17 at 21:30; Stop 07/09/17 at 22:29; Status DC Acetaminophen (Tylenol) 650 mg PRN Q6HRS PRN PO PAIN / TEMP; Start 07/09/17 at 22:45 Multi-Ingredient Ointment (Analgesic [place]) 1 camryn PRN QID PRN TP MUSCLE PAIN; Start 07/09/17 at 22:45 Al Hydroxide/Mg Hydroxide (Mylanta Plus Xs) 15 ml PRN AFTMEALHC PRN PO DYSPEPSIA; Start 07/09/17 at 22:45 Magnesium Hydroxide (Milk Of Magnesia) 2,400 mg PRN QHS PRN PO CONSTIPATION; Start 07/09/17 at 22:45 Divalproex Sodium (Depakote Sprinkles) 125 mg DAILY PO Last administered on at 07:33; Start 07/10/17 at 09:00; Stop 07/10/17 at 18:16; Status DC Donepezil HCl (Aricept) 10 mg DAILY PO Last administered on 07/17/17at 08:05; Start 07/10/17 at 09:00 Memantine (Namenda) 10 mg BID PO Last administered on 07/17/17at 19:39; Start at 09:00 Amlodipine Besylate (Norvasc) 10 mg DAILY PO Last administered on 07/17/17at 08: 05; Start 07/10/17 at 09:00 Clonidine HCl (Catapres) 0.1 mg PRN BID PRN PO HTN; Start 07/09/17 at 23:15 Tamsulosin HCl (Flomax) 0.4 mg DAILY PO Last administered on 07/17/17 08:05; Start 07/10/17 at 09:00 Cyanocobalamin (Vitamin B-12) 50 mcg DAILY PO Last administered on 07/17/17 08 :08; Start 07/10/17 at 09:00 Lisinopril (Prinivil) 40 mg DAILY PO Last administered on 07/17/17 08:07; Start 07/10/17 at 09:00 Multivitamins/ Calcium (Thera-M Plus) 1 tab DAILY PO Last administered on 08:05; Start 07/10/17 at 09:00 Pneumococcal Polyvalent Vaccine (Pneumovax 23) 0.5 ml ONCE ONCE VAX IM Last administered on 07/10/17 09:40; Start 07/10/17 at 09:00; Stop 07/10/17 at 09:01 ; Status DC Vitamin D (Vitamin D3) 50,000 unit WEEKLY PO Last administered on 07/17/17 08: 08; Start 07/10/17 at 15:00 Divalproex Sodium (Depakote Sprinkles) 250 mg BID PO Last administered on 09:32; Start 07/10/17 at 21:00; Stop 07/13/17 at 18:30; Status DC Mirtazapine (Remeron) 7.5 mg QHS PO Last administered on 07/17/17 19:39; Start 07/10/17 at 21:00 Atorvastatin Calcium (Lipitor) 10 mg QHS PO Last administered on 07/17/17 19: 39; Start 07/11/17 at 21:00 Divalproex Sodium (Depakote Sprinkles) 375 mg BID PO Last administered on at 08:44; Start 07/13/17 at 21:00; Stop 07/16/17 at 10:59; Status DC Divalproex Sodium (Depakote Sprinkles) 500 mg BID@0900,1700 PO Last administered on 07/17/17at 17:36; Start 07/16/17 at 17:00 Active Scripts Active Reported Clonidine Hcl 0.1 Mg Tablet 0.1 Mg PO PRN BID PRN Depakote Sprinkle (Divalproex Sodium) 125 Mg Cap.sprink 125 Mg PO DAILY Norvasc (Amlodipine Besylate) 10 Mg Tablet 10 Mg PO DAILY Vitamin B-12 (Cyanocobalamin (Vitamin B-12)) 50 Mcg Tablet 50 Mcg PO DAILY Multi-Vitamin Daily (Multivitamin) 1 Each Tablet 1 Tab PO DAILY Flomax (Tamsulosin Hcl) 0.4 Mg Cap.er.24h 0.4 Mg PO DAILY Namenda (Memantine Hcl) 10 Mg Tablet 10 Mg PO BID Lisinopril 40 Mg Tablet 40 Mg PO DAILY Aricept (Donepezil Hcl) 10 Mg Tablet 10 Mg PO DAILY I have reviewed the current psychotropics carefully including drug interactions. Risk benefit ratio favors no change other than as noted in my dictated progress note. Diagnosis: Problems: (1) Anxiety disorder (2) Impulse control disorder (3) Dementia, vascular, with depression (4) Dementia, vascular, with delusions (5) Dementia in Alzheimer's disease with depression (6) Dementia in Alzheimer's disease with delusions NEVILLE ANTONIO MD Jul 17, 2017 21:05
--- NOTE | 2017-07-17 22:52 | NUR ---
Behavior Intervention Response and Plan: BIRP Note: Behavior: Assumed Care of patient, patient located in Patient Room at shift change. Patient exhibited the following behavior Withdrawn, Drowsy, Compliant. Brief assessment on rounds of vital signs, medication needs, lab studies, and pain. Treatment plan problems Dementia with BD and Fall Risk. Intervention: Patient assessed and the following interventions initiated safety checks 15 Minute Checks Cognitive Assessment , Head to toe Assessment , Medications. Response: After interactions and interventions patient responded in the following manner, Calm , Compliant ,Cooperative. Continue to assess behaviors and condition will continue to monitor throughout the shift as needed. Patient educated on ADL's, and hand hygiene. Plan: Continue to monitor Master Treatment Plan for patient's progress toward short term goals of Decreased Agitation, Decreased Aggression, snf goals to return to previous living setting vs placement. Continue to assess patient for changes in above assessment. Monitor for medication needs, pain, and safety concerns. Hourly rounding performed to ensure safe environment.
[2017-07-18 05:54] VITALS: BP 138/71
[2017-07-18] MEDS: MULTIVITAMIN with MINERAL TABLET. PO SCH (07:38)
[2017-07-18] MEDS: DONEPEZIL HCL 10 MG TABLET PO SCH (07:38)
[2017-07-18] MEDS: LISINOPRIL 20 MG TABLET PO SCH (07:38)
[2017-07-18] MEDS: MEMANTINE 10 MG TABLET. PO SCH ×2 (07:38→19:27)
[2017-07-18] MEDS: DIVALPROEX 125 MG CAP.SPRINK PO SCH ×2 (07:39→19:27)
[2017-07-18] MEDS: TAMSULOSIN 0.4 MG CAP.ER.24H. PO SCH (07:39)
[2017-07-18] MEDS: amLODIPine BESYLATE 10 MG TABLET PO SCH (07:39)
[2017-07-18] MEDS: CYANOCOBALAMIN (VITAMIN B-12) 100 MCG TABLET PO SCH (07:40)
--- NOTE | 2017-07-18 09:54 | NUR ---
Behavior Intervention Response and Plan: BIRP Note: Behavior: Assumed Care of patient, patient located in Dining Room at shift change. Patient exhibited the following behavior Disorganized, Wandering, Compliant. Brief assessment on rounds of vital signs, medication needs, lab studies, and pain. Treatment plan problems . Intervention: Patient assessed and the following interventions initiated safety checks 15 Minute Checks Cognitive Assessment , Head to toe Assessment , Medications. Response: After interactions and interventions patient responded in the following manner, Compliant , Compliant ,Compliant. Continue to assess behaviors and condition will continue to monitor throughout the shift as needed. Patient educated on ADL's, and hand hygiene. 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 Continue to assess patient for changes in above assessment. Monitor for medication needs, pain, and safety concerns. Hourly rounding performed to ensure safe environment.
--- NOTE | 2017-07-18 15:52 | NUR ---
pt up adl to meals. occasionally reminded to use walker. has been more social today. in pleasant spirits. compliant with meds and cares.
[2017-07-18 16:06] VITALS: BP 142/71
[2017-07-18] MEDS: ATORVASTATIN CALCIUM 10 MG TABLET. PO SCH (19:27)
[2017-07-18] MEDS: MIRTAZAPINE 7.5 MG TABLET. PO SCH (19:27)
--- NOTE | 2017-07-18 20:23 | NUR ---
Behavior Intervention Response and Plan: BIRP Note: Behavior: Assumed Care of patient, patient located in Dining Room at shift change. Patient exhibited the following behavior Disorganized, Wandering, Compliant. Brief assessment on rounds of vital signs, medication needs, lab studies, and pain. Treatment plan problems . Intervention: Patient assessed and the following interventions initiated safety checks 15 Minute Checks Cognitive Assessment , Head to toe Assessment , Medications. Response: After interactions and interventions patient responded in the following manner, Compliant , Compliant ,Compliant. Continue to assess behaviors and condition will continue to monitor throughout the shift as needed. Patient educated on ADL's, and hand hygiene. Plan: Continue to monitor Master Treatment Plan for patient's progress toward short term goals of Decreased Agitation, Decreased Aggression, laborer marine terminal goals to return to previous living setting vs placement. Continue to assess patient for changes in above assessment. Monitor for medication needs, pain, and safety concerns. Hourly rounding performed to ensure safe environment.
--- NOTE | 2017-07-18 20:29 | PN ---
DATE: 07/17/2017 PSYCHIATRIC PROGRESS NOTE This late entry for 07/17/2017 covers the elements not covered in my initial note of 07/17/2017. SUBJECTIVE: Met with the patient the evening of 07/17/2017. Overall, the patient is doing a little better. Family were pleased with his progress during the visit. They want airplane put on his door of his room to help him remember what room he is and the nursing staff will help this. REVIEW OF SYSTEMS: No CV, , pulmonary, eye, ENT system symptoms on review. Reliability is poor. MENTAL STATUS EXAM: Oriented to himself. Insight, judgment, recent and remote memory, attention, concentration, fund of knowledge is poor, consistent with his diagnosis mentioned in my initial note. PLAN: Continue psychotropics mentioned in my initial note. We will need to adjust Depakote further gradually. Next set of labs on 07/20/2017. Adjust Depakote thereafter. MAN Senthil ANTONIO MD DR: DUNCAN/regine JOB#: [id number] / [id number]
--- NOTE | 2017-07-18 22:06 | PDOC ---
Exam Note: Lavon Note: Please also refer to the separate dictated note~for this date of service dictated separately.~Patient seen individually. Discussed the patient with Nursing staff reviewed the chart.~Reviewed interim history and current functioning. Reviewed vital signs,~Labs/ Radiology~and current medications noted below. Continue current treatment with the changes noted in the dictated addendum note Assessment: Vital Signs: Vital Signs Date Time Temp Pulse Resp B/P (MAP) Pulse Ox O2 Delivery O2 Flow Rate FiO2 07/18/17 16:06 98.1 91 18 142/71 (94) 97 07/13/17 15:22 Room Air I&O Intake and Output 07/18/17 07:00 Intake Total 1200 ml Balance 1200 ml Intake Oral 1200 ml Current Medications: Meds: Current Medications Sodium Chloride 1,000 ml @ 1,000 mls/hr 1X ONCE IV Last administered on at 21:19; Start 07/09/17 at 21:30; Stop 07/09/17 at 22:29; Status DC Acetaminophen (Tylenol) 650 mg PRN Q6HRS PRN PO PAIN / TEMP; Start 07/09/17 at 22:45 Multi-Ingredient Ointment (Analgesic [place]) 1 camryn PRN QID PRN TP MUSCLE PAIN; Start 07/09/17 at 22:45 Al Hydroxide/Mg Hydroxide (Mylanta Plus Xs) 15 ml PRN AFTMEALHC PRN PO DYSPEPSIA; Start 07/09/17 at 22:45 Magnesium Hydroxide (Milk Of Magnesia) 2,400 mg PRN QHS PRN PO CONSTIPATION; Start 07/09/17 at 22:45 Divalproex Sodium (Depakote Sprinkles) 125 mg DAILY PO Last administered on at 07:33; Start 07/10/17 at 09:00; Stop 07/10/17 at 18:16; Status DC Donepezil HCl (Aricept) 10 mg DAILY PO Last administered on 07/18/17at 07:38; Start 07/10/17 at 09:00 Memantine (Namenda) 10 mg BID PO Last administered on 07/18/17at 19:27; Start at 09:00 Amlodipine Besylate (Norvasc) 10 mg DAILY PO Last administered on 07/18/17at 07: 39; Start 07/10/17 at 09:00 Clonidine HCl (Catapres) 0.1 mg PRN BID PRN PO HTN; Start 07/09/17 at 23:15 Tamsulosin HCl (Flomax) 0.4 mg DAILY PO Last administered on 07/18/17 07:39; Start 07/10/17 at 09:00 Cyanocobalamin (Vitamin B-12) 50 mcg DAILY PO Last administered on 07/18/17 07 :40; Start 07/10/17 at 09:00 Lisinopril (Prinivil) 40 mg DAILY PO Last administered on 07/18/17 07:38; Start 07/10/17 at 09:00 Multivitamins/ Calcium (Thera-M Plus) 1 tab DAILY PO Last administered on 07:38; Start 07/10/17 at 09:00 Pneumococcal Polyvalent Vaccine (Pneumovax 23) 0.5 ml ONCE ONCE VAX IM Last administered on 07/10/17 09:40; Start 07/10/17 at 09:00; Stop 07/10/17 at 09:01 ; Status DC Vitamin D (Vitamin D3) 50,000 unit WEEKLY PO Last administered on 07/17/17 08: 08; Start 07/10/17 at 15:00 Divalproex Sodium (Depakote Sprinkles) 250 mg BID PO Last administered on 09:32; Start 07/10/17 at 21:00; Stop 07/13/17 at 18:30; Status DC Mirtazapine (Remeron) 7.5 mg QHS PO Last administered on 07/18/17 19:27; Start 07/10/17 at 21:00 Atorvastatin Calcium (Lipitor) 10 mg QHS PO Last administered on 07/18/17 19: 27; Start 07/11/17 at 21:00 Divalproex Sodium (Depakote Sprinkles) 375 mg BID PO Last administered on 08:44; Start 07/13/17 at 21:00; Stop 07/16/17 at 10:59; Status DC Divalproex Sodium (Depakote Sprinkles) 500 mg BID@0900,1700 PO Last administered on 07/18/17 07:39; Start 07/16/17 at 17:00; Stop 07/18/17 at 16:12 ; Status DC Divalproex Sodium (Depakote Sprinkles) 500 mg BID PO Last administered on at 19:27; Start 07/18/17 at 21:00 Active Scripts Active Reported Clonidine Hcl 0.1 Mg Tablet 0.1 Mg PO PRN BID PRN Depakote Sprinkle (Divalproex Sodium) 125 Mg Cap.sprink 125 Mg PO DAILY Norvasc (Amlodipine Besylate) 10 Mg Tablet 10 Mg PO DAILY Vitamin B-12 (Cyanocobalamin (Vitamin B-12)) 50 Mcg Tablet 50 Mcg PO DAILY Multi-Vitamin Daily (Multivitamin) 1 Each Tablet 1 Tab PO DAILY Flomax (Tamsulosin Hcl) 0.4 Mg Cap.er.24h 0.4 Mg PO DAILY Namenda (Memantine Hcl) 10 Mg Tablet 10 Mg PO BID Lisinopril 40 Mg Tablet 40 Mg PO DAILY Aricept (Donepezil Hcl) 10 Mg Tablet 10 Mg PO DAILY I have reviewed the current psychotropics carefully including drug interactions. Risk benefit ratio favors no change other than as noted in my dictated progress note. Diagnosis: Problems: (1) Anxiety disorder (2) Impulse control disorder (3) Dementia, vascular, with depression (4) Dementia, vascular, with delusions (5) Dementia in Alzheimer's disease with depression (6) Dementia in Alzheimer's disease with delusions NEVILLE ANTONIO MD Jul 18, 2017 22:06
--- NOTE | 2017-07-18 23:01 | NUR ---
Stephen Note: Assumed care of pt @2300.
[2017-07-19 05:57] VITALS: BP 137/67
[2017-07-19] MEDS: DONEPEZIL HCL 10 MG TABLET PO SCH (09:26)
[2017-07-19] MEDS: MULTIVITAMIN with MINERAL TABLET. PO SCH (09:26)
[2017-07-19] MEDS: TAMSULOSIN 0.4 MG CAP.ER.24H. PO SCH (09:26)
[2017-07-19] MEDS: DIVALPROEX 125 MG CAP.SPRINK PO SCH ×2 (09:26→20:26)
[2017-07-19] MEDS: MEMANTINE 10 MG TABLET. PO SCH ×2 (09:26→20:26)
[2017-07-19] MEDS: LISINOPRIL 20 MG TABLET PO SCH (09:27)
[2017-07-19] MEDS: amLODIPine BESYLATE 10 MG TABLET PO SCH (09:27)
[2017-07-19] MEDS: CYANOCOBALAMIN (VITAMIN B-12) 100 MCG TABLET PO SCH (09:28)
--- NOTE | 2017-07-19 09:40 | NUR ---
Behavior Intervention Response and Plan: BIRP Note: Behavior: Assumed Care of patient, patient located in Patient Room at shift change. Patient exhibited the following behavior Disorganized, Withdrawn, Drowsy. Brief assessment on rounds of vital signs, medication needs, lab studies, and pain. Treatment plan problems 1 & 2. Intervention: Patient assessed and the following interventions initiated safety checks 15 Minute Checks Cognitive Assessment , Head to toe Assessment , Medications. Response: After interactions and interventions patient responded in the following manner, Calm , Appropriate ,Compliant. Continue to assess behaviors and condition will continue to monitor throughout the shift as needed. Patient educated on ADL's, and hand hygiene. Plan: Continue to monitor Master Treatment Plan for patient's progress toward short term goals of Decreased Agitation, Decreased Aggression, intermediate frame tender goals to return to previous living setting vs placement. Continue to assess patient for changes in above assessment. Monitor for medication needs, pain, and safety concerns. Hourly rounding performed to ensure safe environment.
[2017-07-19 16:11] VITALS: BP 124/66
[2017-07-19] MEDS: ATORVASTATIN CALCIUM 10 MG TABLET. PO SCH (20:26)
[2017-07-19] MEDS: MIRTAZAPINE 7.5 MG TABLET. PO SCH (20:26)
--- NOTE | 2017-07-19 21:04 | PDOC ---
Exam Note: Lavon Note: Please also refer to the separate dictated note~for this date of service dictated separately.~Patient seen individually. Discussed the patient with Nursing staff reviewed the chart.~Reviewed interim history and current functioning. Reviewed vital signs,~Labs/ Radiology~and current medications noted below. Continue current treatment with the changes noted in the dictated addendum note Assessment: Vital Signs: Vital Signs Date Time Temp Pulse Resp B/P (MAP) Pulse Ox O2 Delivery O2 Flow Rate FiO2 07/19/17 16:11 97.9 85 18 124/66 (85) 96 07/13/17 15:22 Room Air I&O Intake and Output 07/19/17 07:00 Intake Total 965 ml Balance 965 ml Intake Oral 965 ml # Voids 1 Current Medications: Meds: Current Medications Sodium Chloride 1,000 ml @ 1,000 mls/hr 1X ONCE IV Last administered on at 21:19; Start 07/09/17 at 21:30; Stop 07/09/17 at 22:29; Status DC Acetaminophen (Tylenol) 650 mg PRN Q6HRS PRN PO PAIN / TEMP; Start 07/09/17 at 22:45 Multi-Ingredient Ointment (Analgesic [place]) 1 camryn PRN QID PRN TP MUSCLE PAIN; Start 07/09/17 at 22:45 Al Hydroxide/Mg Hydroxide (Mylanta Plus Xs) 15 ml PRN AFTMEALHC PRN PO DYSPEPSIA; Start 07/09/17 at 22:45 Magnesium Hydroxide (Milk Of Magnesia) 2,400 mg PRN QHS PRN PO CONSTIPATION; Start 07/09/17 at 22:45 Divalproex Sodium (Depakote Sprinkles) 125 mg DAILY PO Last administered on at 07:33; Start 07/10/17 at 09:00; Stop 07/10/17 at 18:16; Status DC Donepezil HCl (Aricept) 10 mg DAILY PO Last administered on 07/19/17at 09:26; Start 07/10/17 at 09:00 Memantine (Namenda) 10 mg BID PO Last administered on 07/19/17at 20:26; Start at 09:00 Amlodipine Besylate (Norvasc) 10 mg DAILY PO Last administered on 3/25/18at 09: 27; Start 07/10/17 at 09:00 Clonidine HCl (Catapres) 0.1 mg PRN BID PRN PO HTN; Start 07/09/17 at 23:15 Tamsulosin HCl (Flomax) 0.4 mg DAILY PO Last administered on 07/19/17 09:26; Start 07/10/17 at 09:00 Cyanocobalamin (Vitamin B-12) 50 mcg DAILY PO Last administered on 07/19/17 09 :28; Start 07/10/17 at 09:00 Lisinopril (Prinivil) 40 mg DAILY PO Last administered on 07/19/17 09:27; Start 07/10/17 at 09:00 Multivitamins/ Calcium (Thera-M Plus) 1 tab DAILY PO Last administered on 09:26; Start 07/10/17 at 09:00 Pneumococcal Polyvalent Vaccine (Pneumovax 23) 0.5 ml ONCE ONCE VAX IM Last administered on 07/10/17 09:40; Start 07/10/17 at 09:00; Stop 07/10/17 at 09:01 ; Status DC Vitamin D (Vitamin D3) 50,000 unit WEEKLY PO Last administered on 07/17/17 08: 08; Start 07/10/17 at 15:00 Divalproex Sodium (Depakote Sprinkles) 250 mg BID PO Last administered on 09:32; Start 07/10/17 at 21:00; Stop 07/13/17 at 18:30; Status DC Mirtazapine (Remeron) 7.5 mg QHS PO Last administered on 07/19/17 20:26; Start 07/10/17 at 21:00 Atorvastatin Calcium (Lipitor) 10 mg QHS PO Last administered on 07/19/17 20: 26; Start 07/11/17 at 21:00 Divalproex Sodium (Depakote Sprinkles) 375 mg BID PO Last administered on 08:44; Start 07/13/17 at 21:00; Stop 07/16/17 at 10:59; Status DC Divalproex Sodium (Depakote Sprinkles) 500 mg BID@0900,1700 PO Last administered on 3/24/18at 07:39; Start 07/16/17 at 17:00; Stop 07/18/17 at 16:12 ; Status DC Divalproex Sodium (Depakote Sprinkles) 500 mg BID PO Last administered on at 20:26; Start 07/18/17 at 21:00 Active Scripts Active Reported Clonidine Hcl 0.1 Mg Tablet 0.1 Mg PO PRN BID PRN Depakote Sprinkle (Divalproex Sodium) 125 Mg Cap.sprink 125 Mg PO DAILY Norvasc (Amlodipine Besylate) 10 Mg Tablet 10 Mg PO DAILY Vitamin B-12 (Cyanocobalamin (Vitamin B-12)) 50 Mcg Tablet 50 Mcg PO DAILY Multi-Vitamin Daily (Multivitamin) 1 Each Tablet 1 Tab PO DAILY Flomax (Tamsulosin Hcl) 0.4 Mg Cap.er.24h 0.4 Mg PO DAILY Namenda (Memantine Hcl) 10 Mg Tablet 10 Mg PO BID Lisinopril 40 Mg Tablet 40 Mg PO DAILY Aricept (Donepezil Hcl) 10 Mg Tablet 10 Mg PO DAILY I have reviewed the current psychotropics carefully including drug interactions. Risk benefit ratio favors no change other than as noted in my dictated progress note. Diagnosis: Problems: (1) Anxiety disorder (2) Impulse control disorder (3) Dementia, vascular, with depression (4) Dementia, vascular, with delusions (5) Dementia in Alzheimer's disease with depression (6) Dementia in Alzheimer's disease with delusions NEVILLE ANTONIO MD Jul 19, 2017 21:04
--- NOTE | 2017-07-20 04:21 | NUR ---
pt reminded several times to use walker. social. ambulated quickly towards aide and tripped towards her and attempted to give her a kiss. pt redirected. attempted to joke with peer. peer not happy. compliant with meds. pt went to bed later in evan. resting quietly.
[2017-07-20 06:05] VITALS: BP 135/74
[2017-07-20 07:44] LABS: BASO # 0.1 x10^3/uL (0.0-0.2); BASO % 1 % (0-3); EOS # 0.2 x10^3/uL (0.0-0.7); EOS % 3 % (0-3); HEMATOCRIT 41.7 % (39.0-53.0); HEMOGLOBIN 14.2 g/dL (13.0-17.5); LYMPH # 1.7 x10^3/uL (1.0-4.8); LYMPH % 24 % (24-48); MEAN CORPUSCULAR HEMOGLOBIN 33 pg (25-35); MEAN CORPUSCULAR HGB CONC 34 g/dL (31-37); MEAN CORPUSCULAR VOLUME 98 fL (79-100); MONO # 0.6 x10^3/uL (0.0-1.1); MONO % 9 % (0-9); NEUT # 4.5 x10^3uL (1.8-7.7); NEUT % 64 % (31-73); PLATELET COUNT 184 x10^3/uL (140-400); RED BLOOD COUNT 4.27 x10^6/uL (4.30-5.70); RED CELL DISTRIBUTION WIDTH 13.1 % (11.5-14.5)
[2017-07-20 08:11] LABS: ALBUMIN 2.9 g/dL (3.4-5.0); ALK PHOS 44 U/L (46-116); ALT (SGPT) 24 U/L (16-63); ANION GAP 8 (6-14); AST (SGOT) 12 U/L (15-37); BLOOD UREA NITROGEN 22 mg/dL (8-26); BUN/CREATININE RATIO 20 (6-20); CALCIUM 8.2 mg/dL (8.5-10.1); CARBON DIOXIDE 29 mmol/L (21-32); CHLORIDE 109 mmol/L (98-107); CREATININE 1.1 mg/dL (0.7-1.3); GFR 64.4; GLUCOSE 93 mg/dL (70-99); MAGNESIUM 2.2 mg/dL (1.8-2.4); POTASSIUM 4.1 mmol/L (3.5-5.1); SODIUM 146 mmol/L (136-145); TOTAL BILIRUBIN 0.6 mg/dL (0.2-1.0); TOTAL PROTEIN 5.9 g/dL (6.4-8.2)
[2017-07-20 08:17] LABS: VAL ACID 52 mcg/mL (50-100)
[2017-07-20] MEDS: amLODIPine BESYLATE 10 MG TABLET PO SCH (08:39)
[2017-07-20] MEDS: MEMANTINE 10 MG TABLET. PO SCH ×2 (08:39→19:30)
[2017-07-20] MEDS: TAMSULOSIN 0.4 MG CAP.ER.24H. PO SCH (08:39)
[2017-07-20] MEDS: DIVALPROEX 125 MG CAP.SPRINK PO SCH ×2 (08:40→19:30)
[2017-07-20] MEDS: MULTIVITAMIN with MINERAL TABLET. PO SCH (08:40)
[2017-07-20] MEDS: DONEPEZIL HCL 10 MG TABLET PO SCH (08:40)
[2017-07-20] MEDS: LISINOPRIL 20 MG TABLET PO SCH (08:40)
[2017-07-20] MEDS: CYANOCOBALAMIN (VITAMIN B-12) 100 MCG TABLET PO SCH (08:41)
--- NOTE | 2017-07-20 10:13 | NUR ---
Behavior Intervention Response and Plan: BIRP Note: Behavior: Assumed Care of patient, patient located in Day Room at shift change. Patient exhibited the following behavior Disorganized, Wandering, Anxious. Brief assessment on rounds of vital signs, medication needs, lab studies, and pain. Treatment plan problems 1-2. Intervention: Patient assessed and the following interventions initiated safety checks 15 Minute Checks Cognitive Assessment , Head to toe Assessment , Medications. Response: After interactions and interventions patient responded in the following manner, Disorganized , Wandering ,Cooperative. Continue to assess behaviors and condition will continue to monitor throughout the shift as needed. Patient educated on ADL's, and hand hygiene. Plan: Continue to monitor Master Treatment Plan for patient's progress toward short term goals of Improved Mood, Medication Compliance, laborer marine terminal goals to return to previous living setting vs placement. Continue to assess patient for changes in above assessment. Monitor for medication needs, pain, and safety concerns. Hourly rounding performed to ensure safe environment.
[2017-07-20 16:10] VITALS: BP 109/60
[2017-07-20] MEDS: MIRTAZAPINE 7.5 MG TABLET. PO SCH (19:30)
[2017-07-20] MEDS: ATORVASTATIN CALCIUM 10 MG TABLET. PO SCH (19:30)
--- NOTE | 2017-07-20 21:01 | PDOC ---
Exam Note: Lavon Note: Please also refer to the separate dictated note~for this date of service dictated separately.~Patient seen individually. Discussed the patient with Nursing staff reviewed the chart.~Reviewed interim history and current functioning. Reviewed vital signs,~Labs/ Radiology~and current medications noted below. Continue current treatment with the changes noted in the dictated addendum note Assessment: Vital Signs: Vital Signs Date Time Temp Pulse Resp B/P (MAP) Pulse Ox O2 Delivery O2 Flow Rate FiO2 07/20/17 16:10 97.7 78 16 109/60 (76) 96 I&O Intake and Output 07/20/17 07:00 Intake Total 885 ml Balance 885 ml Intake Oral 885 ml # Bowel Movements 2 Labs: Laboratory Tests Test 07/20/17 07:28 White Blood Count 7.0 x10^3/uL (4.0-11.0) Red Blood Count 4.27 x10^6/uL (4.30-5.70) L Hemoglobin 14.2 g/dL (13.0-17.5) Hematocrit 41.7 % (39.0-53.0) Mean Corpuscular Volume 98 fL (79-100) Mean Corpuscular Hemoglobin 33 pg (25-35) Mean Corpuscular Hemoglobin Concent 34 g/dL (31-37) Red Cell Distribution Width 13.1 % (11.5-14.5) Platelet Count 184 x10^3/uL (140-400) Neutrophils (%) (Auto) 64 % (31-73) Lymphocytes (%) (Auto) 24 % (24-48) Monocytes (%) (Auto) 9 % (0-9) Eosinophils (%) (Auto) 3 % (0-3) Basophils (%) (Auto) 1 % (0-3) Neutrophils # (Auto) 4.5 x10^3uL (1.8-7.7) Lymphocytes # (Auto) 1.7 x10^3/uL (1.0-4.8) Monocytes # (Auto) 0.6 x10^3/uL (0.0-1.1) Eosinophils # (Auto) 0.2 x10^3/uL (0.0-0.7) Basophils # (Auto) 0.1 x10^3/uL (0.0-0.2) Sodium Level 146 mmol/L (136-145) H Potassium Level 4.1 mmol/L (3.5-5.1) Chloride Level 109 mmol/L (98-107) H Carbon Dioxide Level 29 mmol/L (21-32) Anion Gap 8 (6-14) Blood Urea Nitrogen 22 mg/dL (8-26) Creatinine 1.1 mg/dL (0.7-1.3) Estimated GFR (Cockcroft-Gault) 64.4 BUN/Creatinine Ratio 20 (6-20) Glucose Level 93 mg/dL (70-99) Calcium Level 8.2 mg/dL (8.5-10.1) L Magnesium Level 2.2 mg/dL (1.8-2.4) Total Bilirubin 0.6 mg/dL (0.2-1.0) Aspartate Amino Transferase (AST) 12 U/L (15-37) L Alanine Aminotransferase (ALT) 24 U/L (16-63) Alkaline Phosphatase 44 U/L (46-116) L Total Protein 5.9 g/dL (6.4-8.2) L Albumin 2.9 g/dL (3.4-5.0) L Albumin/Globulin Ratio 1.0 (1.0-1.7) Valproic Acid Level 52 mcg/mL (50-100) Valproic Acid Last Dose Date 07/19/17 Valproic Acid Last Dose Time 1700 Current Medications: Meds: Current Medications Sodium Chloride 1,000 ml @ 1,000 mls/hr 1X ONCE IV Last administered on at 21:19; Start 07/09/17 at 21:30; Stop 07/09/17 at 22:29; Status DC Acetaminophen (Tylenol) 650 mg PRN Q6HRS PRN PO PAIN / TEMP; Start 07/09/17 at 22:45 Multi-Ingredient Ointment (Analgesic [place]) 1 camryn PRN QID PRN TP MUSCLE PAIN; Start 07/09/17 at 22:45 Al Hydroxide/Mg Hydroxide (Mylanta Plus Xs) 15 ml PRN AFTMEALHC PRN PO DYSPEPSIA; Start 07/09/17 at 22:45 Magnesium Hydroxide (Milk Of Magnesia) 2,400 mg PRN QHS PRN PO CONSTIPATION; Start 07/09/17 at 22:45 Divalproex Sodium (Depakote Sprinkles) 125 mg DAILY PO Last administered on 07:33; Start 07/10/17 at 09:00; Stop 07/10/17 at 18:16; Status DC Donepezil HCl (Aricept) 10 mg DAILY PO Last administered on 07/20/17 08:40; Start 07/10/17 at 09:00 Memantine (Namenda) 10 mg BID PO Last administered on 07/20/17 19:30; Start at 09:00 Amlodipine Besylate (Norvasc) 10 mg DAILY PO Last administered on 07/20/17 08: 39; Start 07/10/17 at 09:00 Clonidine HCl (Catapres) 0.1 mg PRN BID PRN PO HTN; Start 07/09/17 at 23:15 Tamsulosin HCl (Flomax) 0.4 mg DAILY PO Last administered on 07/20/17 08:39; Start 07/10/17 at 09:00 Cyanocobalamin (Vitamin B-12) 50 mcg DAILY PO Last administered on 07/20/17 08 :41; Start 07/10/17 at 09:00 Lisinopril (Prinivil) 40 mg DAILY PO Last administered on 07/20/17 08:40; Start 07/10/17 at 09:00 Multivitamins/ Calcium (Thera-M Plus) 1 tab DAILY PO Last administered on 08:40; Start 07/10/17 at 09:00 Pneumococcal Polyvalent Vaccine (Pneumovax 23) 0.5 ml ONCE ONCE VAX IM Last administered on 07/10/17 09:40; Start 07/10/17 at 09:00; Stop 07/10/17 at 09:01 ; Status DC Vitamin D (Vitamin D3) 50,000 unit WEEKLY PO Last administered on 07/17/17 08: 08; Start 07/10/17 at 15:00 Divalproex Sodium (Depakote Sprinkles) 250 mg BID PO Last administered on 09:32; Start 07/10/17 at 21:00; Stop 07/13/17 at 18:30; Status DC Mirtazapine (Remeron) 7.5 mg QHS PO Last administered on 3/26/18at 19:30; Start 07/10/17 at 21:00 Atorvastatin Calcium (Lipitor) 10 mg QHS PO Last administered on 07/20/17at 19: 30; Start 07/11/17 at 21:00 Divalproex Sodium (Depakote Sprinkles) 375 mg BID PO Last administered on at 08:44; Start 07/13/17 at 21:00; Stop 07/16/17 at 10:59; Status DC Divalproex Sodium (Depakote Sprinkles) 500 mg BID@0900,1700 PO Last administered on 07/18/17at 07:39; Start 07/16/17 at 17:00; Stop 07/18/17 at 16:12 ; Status DC Divalproex Sodium (Depakote Sprinkles) 500 mg BID PO Last administered on at 19:30; Start 07/18/17 at 21:00 Active Scripts Active Reported Clonidine Hcl 0.1 Mg Tablet 0.1 Mg PO PRN BID PRN Depakote Sprinkle (Divalproex Sodium) 125 Mg Cap.sprink 125 Mg PO DAILY Norvasc (Amlodipine Besylate) 10 Mg Tablet 10 Mg PO DAILY Vitamin B-12 (Cyanocobalamin (Vitamin B-12)) 50 Mcg Tablet 50 Mcg PO DAILY Multi-Vitamin Daily (Multivitamin) 1 Each Tablet 1 Tab PO DAILY Flomax (Tamsulosin Hcl) 0.4 Mg Cap.er.24h 0.4 Mg PO DAILY Namenda (Memantine Hcl) 10 Mg Tablet 10 Mg PO BID Lisinopril 40 Mg Tablet 40 Mg PO DAILY Aricept (Donepezil Hcl) 10 Mg Tablet 10 Mg PO DAILY I have reviewed the current psychotropics carefully including drug interactions. Risk benefit ratio favors no change other than as noted in my dictated progress note. Diagnosis: Problems: (1) Anxiety disorder (2) Impulse control disorder (3) Dementia, vascular, with depression (4) Dementia, vascular, with delusions (5) Dementia in Alzheimer's disease with depression (6) Dementia in Alzheimer's disease with delusions NEVILLE ANTONIO MD Jul 20, 2017 21:01
--- NOTE | 2017-07-20 23:06 | PN ---
DATE: 07/18/2017 This is a late entry, 07/18/2017, covers the elements not covered in my initial note 07/18/2017. SUBJECTIVE: I met with the patient in the evening of 07/18/2017. The patient remains confused, coming out of his room, a little bit more, but quite delusional, believes he has got to catch a plane, looking for a taxi ride. Family have asked for an airplane model to be put on his door so that he recognizes his room. REVIEW OF SYSTEMS: No CV, , pulmonary, eye, ENT system symptoms on review. Reliability poor. MENTAL STATUS EXAM: Oriented to himself. Insight, judgment, recent and remote memory, attention, concentration, fund of knowledge poor, consistent with his diagnosis as mentioned in my initial note. IMPRESSION: Major neurocognitive disorder, Alzheimer, vascular with delusion, depression, behavioral disturbance. Rest unchanged. PLAN: Change Depakote Sprinkles from 500 mg at 0900, 1700 to 500 mg at 0900, 2100. Check CBC, CMP, valproic acid level in 07/20/2017. Adjust to reach a therapeutic level since the prior valproic acid level was subtherapeutic at 45. MAN Senthil ANTONIO MD DR: DUNCAN/regine JOB#: [id number] / [id number]
--- NOTE | 2017-07-21 00:39 | NUR ---
Behavior Intervention Response and Plan: BIRP Note: Behavior: Assumed Care of patient, patient located in Patient Room at shift change. Patient exhibited the following behavior Disorganized, Withdrawn, Drowsy. Brief assessment on rounds of vital signs, medication needs, lab studies, and pain. Treatment plan problems 1 & 2. Intervention: Patient assessed and the following interventions initiated safety checks 15 Minute Checks Cognitive Assessment , Head to toe Assessment , Medications. Response: After interactions and interventions patient responded in the following manner, Calm , Appropriate ,Compliant. Continue to assess behaviors and condition will continue to monitor throughout the shift as needed. Patient educated on ADL's, and hand hygiene. 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 Continue to assess patient for changes in above assessment. Monitor for medication needs, pain, and safety concerns. Hourly rounding performed to ensure safe environment.
--- NOTE | 2017-07-21 01:43 | PN ---
DATE: 07/19/2017 This is a late entry for 07/19/2017 and covers the elements not covered in my initial note of 07/19/2017. SUBJECTIVE: I met with the patient in the evening of 07/19/2017. The patient has been more verbal, still confused, believes he is waiting for a bus to go to the airport. At one point, he was sexually inappropriate tried to kiss a female nursing staff. REVIEW OF SYSTEMS: No CV, , pulmonary, eye, ENT system symptoms on review. Reliability poor. MENTAL STATUS EXAM: Oriented to himself. Insight, judgment, recent and remote memory, attention, concentration, fund of knowledge poor, consistent with his diagnosis. I met with him individually to address all of the above. LABORATORY DATA: Reviewed. IMPRESSION: Unchanged from initial note. Major neurocognitive disorder, Alzheimer, vascular with delusion, depression, behavioral disturbance. Rest unchanged. PLAN: Continue current psychotropics. Check CBC, CMP, valproic acid level on 07/20/2017 and adjust the Depakote. Rest unchanged per initial note. MAN Senthil ANTONIO MD DR: DUNCAN/regine JOB#: [id number] / [id number]
[2017-07-21 06:08] VITALS: BP 133/63
[2017-07-21] MEDS: MULTIVITAMIN with MINERAL TABLET. PO SCH (07:36)
[2017-07-21] MEDS: CYANOCOBALAMIN (VITAMIN B-12) 100 MCG TABLET PO SCH (07:36)
[2017-07-21] MEDS: DONEPEZIL HCL 10 MG TABLET PO SCH (07:37)
[2017-07-21] MEDS: amLODIPine BESYLATE 10 MG TABLET PO SCH (07:37)
[2017-07-21] MEDS: MEMANTINE 10 MG TABLET. PO SCH ×2 (07:37→20:21)
[2017-07-21] MEDS: LISINOPRIL 20 MG TABLET PO SCH (07:37)
[2017-07-21] MEDS: DIVALPROEX 125 MG CAP.SPRINK PO SCH ×2 (07:38→20:21)
[2017-07-21] MEDS: TAMSULOSIN 0.4 MG CAP.ER.24H. PO SCH (07:38)
--- NOTE | 2017-07-21 10:11 | NUR ---
Behavior Intervention Response and Plan: BIRP Note: Behavior: Assumed Care of patient, patient located in Dining Room at shift change. Patient exhibited the following behavior Calm, Wandering, Cooperative. Brief assessment on rounds of vital signs, medication needs, lab studies, and pain. Treatment plan problems 1-2. Intervention: Patient assessed and the following interventions initiated safety checks 15 Minute Checks Cognitive Assessment , Head to toe Assessment , Medications. Response: After interactions and interventions patient responded in the following manner, Disorganized , Wandering ,Interactive. Continue to assess behaviors and condition will continue to monitor throughout the shift as needed. Patient educated on ADL's, and hand hygiene. 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 Continue to assess patient for changes in above assessment. Monitor for medication needs, pain, and safety concerns. Hourly rounding performed to ensure safe environment.
[2017-07-21 16:14] VITALS: BP 112/51
[2017-07-21] MEDS: MIRTAZAPINE 7.5 MG TABLET. PO SCH (20:21)
[2017-07-21] MEDS: ATORVASTATIN CALCIUM 10 MG TABLET. PO SCH (20:21)
--- NOTE | 2017-07-21 20:54 | PDOC ---
Exam Note: [place]on Note: Please also refer to the separate dictated note~for this date of service dictated separately.~Patient seen individually. Discussed the patient with Nursing staff reviewed the chart.~Reviewed interim history and current functioning. Reviewed vital signs,~Labs/ Radiology~and current medications noted below. Continue current treatment with the changes noted in the dictated addendum note Assessment: Vital Signs: Vital Signs Date Time Temp Pulse Resp B/P (MAP) Pulse Ox O2 Delivery O2 Flow Rate FiO2 07/21/17 16:14 99.0 75 18 112/51 (71) 95 I&O Intake and Output 07/21/17 07:00 Intake Total 960 ml Balance 960 ml Intake Oral 960 ml Current Medications: Meds: Current Medications Sodium Chloride 1,000 ml @ 1,000 mls/hr 1X ONCE IV Last administered on at 21:19; Start 07/09/17 at 21:30; Stop 07/09/17 at 22:29; Status DC Acetaminophen (Tylenol) 650 mg PRN Q6HRS PRN PO PAIN / TEMP; Start 07/09/17 at 22:45 Multi-Ingredient Ointment (Analgesic [place]) 1 camryn PRN QID PRN TP MUSCLE PAIN; Start 07/09/17 at 22:45 Al Hydroxide/Mg Hydroxide (Mylanta Plus Xs) 15 ml PRN AFTMEALHC PRN PO DYSPEPSIA; Start 07/09/17 at 22:45 Magnesium Hydroxide (Milk Of Magnesia) 2,400 mg PRN QHS PRN PO CONSTIPATION; Start 07/09/17 at 22:45 Divalproex Sodium (Depakote Sprinkles) 125 mg DAILY PO Last administered on at 07:33; Start 07/10/17 at 09:00; Stop 07/10/17 at 18:16; Status DC Donepezil HCl (Aricept) 10 mg DAILY PO Last administered on 07/21/17at 07:37; Start 07/10/17 at 09:00 Memantine (Namenda) 10 mg BID PO Last administered on 07/21/17at 20:21; Start at 09:00 Amlodipine Besylate (Norvasc) 10 mg DAILY PO Last administered on 07/21/17at 07: 37; Start 07/10/17 at 09:00 Clonidine HCl (Catapres) 0.1 mg PRN BID PRN PO HTN; Start 07/09/17 at 23:15 Tamsulosin HCl (Flomax) 0.4 mg DAILY PO Last administered on 07/21/17 07:38; Start 07/10/17 at 09:00 Cyanocobalamin (Vitamin B-12) 50 mcg DAILY PO Last administered on 07/21/17 07 :36; Start 07/10/17 at 09:00 Lisinopril (Prinivil) 40 mg DAILY PO Last administered on 07/21/17 07:37; Start 07/10/17 at 09:00 Multivitamins/ Calcium (Thera-M Plus) 1 tab DAILY PO Last administered on 07:36; Start 07/10/17 at 09:00 Pneumococcal Polyvalent Vaccine (Pneumovax 23) 0.5 ml ONCE ONCE VAX IM Last administered on 07/10/17 09:40; Start 07/10/17 at 09:00; Stop 07/10/17 at 09:01 ; Status DC Vitamin D (Vitamin D3) 50,000 unit WEEKLY PO Last administered on 07/17/17 08: 08; Start 07/10/17 at 15:00 Divalproex Sodium (Depakote Sprinkles) 250 mg BID PO Last administered on 09:32; Start 07/10/17 at 21:00; Stop 07/13/17 at 18:30; Status DC Mirtazapine (Remeron) 7.5 mg QHS PO Last administered on 07/21/17 20:21; Start 07/10/17 at 21:00 Atorvastatin Calcium (Lipitor) 10 mg QHS PO Last administered on 07/21/17 20: 21; Start 07/11/17 at 21:00 Divalproex Sodium (Depakote Sprinkles) 375 mg BID PO Last administered on 08:44; Start 07/13/17 at 21:00; Stop 07/16/17 at 10:59; Status DC Divalproex Sodium (Depakote Sprinkles) 500 mg BID@0900,1700 PO Last administered on 07/18/17 07:39; Start 07/16/17 at 17:00; Stop 07/18/17 at 16:12 ; Status DC Divalproex Sodium (Depakote Sprinkles) 500 mg BID PO Last administered on at 20:21; Start 07/18/17 at 21:00 Active Scripts Active Reported Clonidine Hcl 0.1 Mg Tablet 0.1 Mg PO PRN BID PRN Depakote Sprinkle (Divalproex Sodium) 125 Mg Cap.sprink 125 Mg PO DAILY Norvasc (Amlodipine Besylate) 10 Mg Tablet 10 Mg PO DAILY Vitamin B-12 (Cyanocobalamin (Vitamin B-12)) 50 Mcg Tablet 50 Mcg PO DAILY Multi-Vitamin Daily (Multivitamin) 1 Each Tablet 1 Tab PO DAILY Flomax (Tamsulosin Hcl) 0.4 Mg Cap.er.24h 0.4 Mg PO DAILY Namenda (Memantine Hcl) 10 Mg Tablet 10 Mg PO BID Lisinopril 40 Mg Tablet 40 Mg PO DAILY Aricept (Donepezil Hcl) 10 Mg Tablet 10 Mg PO DAILY I have reviewed the current psychotropics carefully including drug interactions. Risk benefit ratio favors no change other than as noted in my dictated progress note. Diagnosis: Problems: (1) Anxiety disorder (2) Impulse control disorder (3) Dementia, vascular, with depression (4) Dementia, vascular, with delusions (5) Dementia in Alzheimer's disease with depression (6) Dementia in Alzheimer's disease with delusions NEVILLE ANTONIO MD Jul 21, 2017 20:54
--- NOTE | 2017-07-21 21:35 | NUR ---
Behavior Intervention Response and Plan: BIRP Note: Behavior: Assumed Care of patient, patient located in Patient Room at shift change. Patient exhibited the following behavior Calm, Compliant, Cooperative. Brief assessment on rounds of vital signs, medication needs, lab studies, and pain. Treatment plan problems Dementia with BD and Fall Risk. Intervention: Patient assessed and the following interventions initiated safety checks 15 Minute Checks Cognitive Assessment , Medications , Oral Hydration. Response: After interactions and interventions patient responded in the following manner, Drowsy , Compliant ,Cooperative. Continue to assess behaviors and condition will continue to monitor throughout the shift as needed. Patient educated on ADL's, and hand hygiene. Plan: Continue to monitor Master Treatment Plan for patient's progress toward short term goals of Decreased Agitation, Decreased Anxiety, [facility] goals to return to previous living setting vs placement. Continue to assess patient for changes in above assessment. Monitor for medication needs, pain, and safety concerns. Hourly rounding performed to ensure safe environment.
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
[2017-07-22 06:06] VITALS: BP 148/79
[2017-07-22] MEDS: TAMSULOSIN 0.4 MG CAP.ER.24H. PO SCH (07:56)
[2017-07-22] MEDS: DONEPEZIL HCL 10 MG TABLET PO SCH (07:56)
[2017-07-22] MEDS: MULTIVITAMIN with MINERAL TABLET. PO SCH (07:56)
[2017-07-22] MEDS: DIVALPROEX 125 MG CAP.SPRINK PO SCH ×2 (07:56→20:15)
[2017-07-22] MEDS: amLODIPine BESYLATE 10 MG TABLET PO SCH (07:56)
[2017-07-22] MEDS: LISINOPRIL 20 MG TABLET PO SCH (07:57)
[2017-07-22] MEDS: MEMANTINE 10 MG TABLET. PO SCH ×2 (07:57→20:15)
[2017-07-22] MEDS: CYANOCOBALAMIN (VITAMIN B-12) 100 MCG TABLET PO SCH (07:57)
--- NOTE | 2017-07-22 09:22 | NUR ---
Behavior Intervention Response and Plan: BIRP Note: Behavior: Assumed Care of patient, patient located in Patient Room at shift change. Patient exhibited the following behavior Calm, Interactive, Compliant. Brief assessment on rounds of vital signs, medication needs, lab studies, and pain. Treatment plan problems . Intervention: Patient assessed and the following interventions initiated safety checks 15 Minute Checks Cognitive Assessment , Head to toe Assessment , Medications. Response: After interactions and interventions patient responded in the following manner, Interactive , Wandering ,Cooperative. Continue to assess behaviors and condition will continue to monitor throughout the shift as needed. Patient educated on ADL's, and hand hygiene. 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 Continue to assess patient for changes in above assessment. Monitor for medication needs, pain, and safety concerns. Hourly rounding performed to ensure safe environment.
--- NOTE | 2017-07-22 09:37 | RAD ---
Indication: Change in mental status. History of subdural hematoma. Technique: CT head without IV contrast Comparison: None Findings: Questionable small chronic subdural hematoma is seen overlying the left lateral frontal lobe (series 2 image 12) with mild mass effect on the subjacent brain matter. No midline shift. There is mild diffuse cerebral atrophy with ex vacuo dilation of the ventricles. The basal cisterns are within normal limits. No acute intracranial bleed. No focal loss of ledesma-white differentiation. No calvarial lesions. Visualized paranasal sinuses and mastoid and cells are clear. Visualized orbits are within normal limits. Impression: 1. Questionable small chronic subdural hematoma overlying left lateral frontal lobe. Correlation with outside imaging recommended. 2. No acute intracranial bleed. PQRS Compliance Statement: One or more of the following individualized dose reduction techniques were utilized for this examination: 1. Automated exposure control 2. Adjustment of the mA and/or kV according to patient size 3. Use of iterative reconstruction technique
--- NOTE | 2017-07-22 10:10 | NUR ---
Patient picked an area of his skin below his chin on the neck area which caused him to bleed. Area cleansed and covered with band-aid, no s/s of infection at this time. It appears that patient has bilateral orbital edema, patient denies pain and discomfort, will report to medical doctor. Addendum: 07/22/17 at 1544 by MICHELLE HERNANDEZ RN Medical doctor assessed open area on patient's neck. No new orders at this time.
--- NOTE | 2017-07-22 15:00 | NUR ---
WEEKLY THERAPEUTIC RECREATION NOTE Date of Admission: 07/09/2017 Date of AT Assessment: 07/13/2017 Goal aimed: to increase socialization and engagement Initial goal: Pt.will participate in at least one group a day. Weekly progress towards goal: did not meet Group participation level: minimal to zero Behaviors observed: stays away from others most of the time, sleeps often, difficult to engage, needs reminders to walk with walker Plan: no changes to goal
[2017-07-22 16:32] VITALS: BP 124/64
[2017-07-22] MEDS ORDERED: DIVA125C3 PO (16:53)
[2017-07-22] MEDS: MIRTAZAPINE 7.5 MG TABLET. PO SCH (20:15)
[2017-07-22] MEDS: ATORVASTATIN CALCIUM 10 MG TABLET. PO SCH (20:15)
--- NOTE | 2017-07-22 21:04 | PDOC ---
Exam Note: [place]on Note: Please also refer to the separate dictated note~for this date of service dictated separately.~Patient seen individually. Discussed the patient with Nursing staff reviewed the chart.~Reviewed interim history and current functioning. Reviewed vital signs,~Labs/ Radiology~and current medications noted below. Continue current treatment with the changes noted in the dictated addendum note Assessment: Vital Signs: Vital Signs Date Time Temp Pulse Resp B/P (MAP) Pulse Ox O2 Delivery O2 Flow Rate FiO2 07/22/17 16:32 98.1 83 18 124/64 (84) 96 I&O Intake and Output 07/22/17 07:00 Intake Total 720 ml Balance 720 ml Intake Oral 720 ml # Bowel Movements 1 Current Medications: Meds: Current Medications Sodium Chloride 1,000 ml @ 1,000 mls/hr 1X ONCE IV Last administered on at 21:19; Start 07/09/17 at 21:30; Stop 07/09/17 at 22:29; Status DC Acetaminophen (Tylenol) 650 mg PRN Q6HRS PRN PO PAIN / TEMP; Start 07/09/17 at 22:45 Multi-Ingredient Ointment (Analgesic [place]) 1 camryn PRN QID PRN TP MUSCLE PAIN; Start 07/09/17 at 22:45 Al Hydroxide/Mg Hydroxide (Mylanta Plus Xs) 15 ml PRN AFTMEALHC PRN PO DYSPEPSIA; Start 07/09/17 at 22:45 Magnesium Hydroxide (Milk Of Magnesia) 2,400 mg PRN QHS PRN PO CONSTIPATION; Start 07/09/17 at 22:45 Divalproex Sodium (Depakote Sprinkles) 125 mg DAILY PO Last administered on at 07:33; Start 07/10/17 at 09:00; Stop 07/10/17 at 18:16; Status DC Donepezil HCl (Aricept) 10 mg DAILY PO Last administered on 07/22/17at 07:56; Start 07/10/17 at 09:00 Memantine (Namenda) 10 mg BID PO Last administered on 07/22/17at 20:15; Start at 09:00 Amlodipine Besylate (Norvasc) 10 mg DAILY PO Last administered on 07/22/17at 07: 56; Start 07/10/17 at 09:00 Clonidine HCl (Catapres) 0.1 mg PRN BID PRN PO HTN; Start 07/09/17 at 23:15 Tamsulosin HCl (Flomax) 0.4 mg DAILY PO Last administered on 07/22/17 07:56; Start 07/10/17 at 09:00 Cyanocobalamin (Vitamin B-12) 50 mcg DAILY PO Last administered on 07/22/17 07 :57; Start 07/10/17 at 09:00 Lisinopril (Prinivil) 40 mg DAILY PO Last administered on 07/22/17 07:57; Start 07/10/17 at 09:00 Multivitamins/ Calcium (Thera-M Plus) 1 tab DAILY PO Last administered on 07:56; Start 07/10/17 at 09:00 Pneumococcal Polyvalent Vaccine (Pneumovax 23) 0.5 ml ONCE ONCE VAX IM Last administered on 07/10/17 09:40; Start 07/10/17 at 09:00; Stop 07/10/17 at 09:01 ; Status DC Vitamin D (Vitamin D3) 50,000 unit WEEKLY PO Last administered on 07/17/17 08: 08; Start 07/10/17 at 15:00 Divalproex Sodium (Depakote Sprinkles) 250 mg BID PO Last administered on 09:32; Start 07/10/17 at 21:00; Stop 07/13/17 at 18:30; Status DC Mirtazapine (Remeron) 7.5 mg QHS PO Last administered on 07/22/17 20:15; Start 07/10/17 at 21:00 Atorvastatin Calcium (Lipitor) 10 mg QHS PO Last administered on 07/22/17 20: 15; Start 07/11/17 at 21:00 Divalproex Sodium (Depakote Sprinkles) 375 mg BID PO Last administered on at 08:44; Start 07/13/17 at 21:00; Stop 07/16/17 at 10:59; Status DC Divalproex Sodium (Depakote Sprinkles) 500 mg BID@0900,1700 PO Last administered on 07/18/17at 07:39; Start 07/16/17 at 17:00; Stop 07/18/17 at 16:12 ; Status DC Divalproex Sodium (Depakote Sprinkles) 500 mg BID PO Last administered on at 20:15; Start 07/18/17 at 21:00 Active Scripts Active Reported Divalproex Sodium 125 Mg Cap.sprink 500 Mg PO BID Clonidine Hcl 0.1 Mg Tablet 0.1 Mg PO PRN BID PRN Depakote Sprinkle (Divalproex Sodium) 125 Mg Cap.sprink 125 Mg PO DAILY Norvasc (Amlodipine Besylate) 10 Mg Tablet 10 Mg PO DAILY Vitamin B-12 (Cyanocobalamin (Vitamin B-12)) 50 Mcg Tablet 50 Mcg PO DAILY Multi-Vitamin Daily (Multivitamin) 1 Each Tablet 1 Tab PO DAILY Flomax (Tamsulosin Hcl) 0.4 Mg Cap.er.24h 0.4 Mg PO DAILY Namenda (Memantine Hcl) 10 Mg Tablet 10 Mg PO BID Lisinopril 40 Mg Tablet 40 Mg PO DAILY Aricept (Donepezil Hcl) 10 Mg Tablet 10 Mg PO DAILY I have reviewed the current psychotropics carefully including drug interactions. Risk benefit ratio favors no change other than as noted in my dictated progress note. Diagnosis: Problems: (1) Anxiety disorder (2) Impulse control disorder (3) Dementia, vascular, with depression (4) Dementia, vascular, with delusions (5) Dementia in Alzheimer's disease with depression (6) Dementia in Alzheimer's disease with delusions NEVILLE ANTONIO MD Jul 22, 2017 21:04
--- NOTE | 2017-07-22 21:48 | PN ---
DATE: 07/21/2017 This late entry 07/21/2017 covers elements not covered in my initial note of 07/21/2017. I met with the patient evening of 07/21/2017. The patient remains confused, withdrawn, but compliant with medications. In the morning, he was oriented x 4. Much more confused in the evening. We will check a CT head, as one has not been done. REVIEW OF SYSTEMS: No CV, , pulmonary, eye, ENT system symptoms on review. Reliability poor. MENTAL STATUS EXAM: Oriented to himself. Insight, judgment, recent and remote memory, attention, concentration, fund of knowledge poor, consistent with his diagnosis mentioned in my initial note. IMPRESSION: Major neurocognitive disorder, Alzheimer, vascular with delusion, depression, behavioral disturbance, rule out Lewy body dementia. PLAN: Continue current psychotropics. Check CT head. Adjust further as clinically indicated. MAN Senthil ANTONIO MD DR: DUNCAN/regine JOB#: [id number] / [id number]
[2017-07-23 05:47] VITALS: BP 157/66
[2017-07-23] MEDS ORDERED: ACET325T9 PO (07:44)
[2017-07-23] MEDS ORDERED: ATOR10TA60 PO (07:45)
[2017-07-23] MEDS ORDERED: CHOL500016 PO (07:46)
[2017-07-23] MEDS ORDERED: MAG355OR17 PO (07:47)
[2017-07-23] MEDS ORDERED: MAGN2400 PO (07:48)
[2017-07-23] MEDS ORDERED: METH29OI TP (07:48)
[2017-07-23] MEDS ORDERED: MIRT15TA PO (07:49)
--- NOTE | 2017-07-23 07:49 | NUR ---
[facility] Social Work Discharge Planning Form Patient Name JOHN OLSEN Admit Date: 07/05/17 DISCHARGE PLAN Discharge Destination: [facility] Transportation: 10:00 am Special Instructions/Notes: DISCHARGE TO FACILITY Facility:[facility] Address: [address] [place] [id number] Contact Name: ROXI Gaxiola, Other: PCP: at facility Psychiatrist: at facility Psychiatrist/Mental Health Follow Up at facility 7-10 days Primary Care Follow Up at facility 7-10 days
[2017-07-23] MEDS: MEMANTINE 10 MG TABLET. PO SCH (08:26)
[2017-07-23] MEDS: amLODIPine BESYLATE 10 MG TABLET PO SCH (08:26)
[2017-07-23] MEDS: TAMSULOSIN 0.4 MG CAP.ER.24H. PO SCH (08:26)
[2017-07-23] MEDS: DONEPEZIL HCL 10 MG TABLET PO SCH (08:26)
[2017-07-23] MEDS: MULTIVITAMIN with MINERAL TABLET. PO SCH (08:26)
[2017-07-23 08:27] VITALS: BP 157/66
[2017-07-23] MEDS: DIVALPROEX 125 MG CAP.SPRINK PO SCH (08:27)
[2017-07-23] MEDS: LISINOPRIL 20 MG TABLET PO SCH (08:27)
[2017-07-23] MEDS: CYANOCOBALAMIN (VITAMIN B-12) 100 MCG TABLET PO SCH (08:28)
--- NOTE | 2017-07-23 11:52 | NUR ---
Transition Record was faxed to follow-up provider with the following elements: Reason for admission, procedures, tests, principal diagnosis, pending studies, patient instructions, 17/11 contact information for unit, phone number to obtain pending test results, plan for follow-up care, physician follow-up, advanced directive information, and medication list with dose, duration and instructions. This information was included in the following documents: History and physical, lab results, study results, progress notes, social work planning form, DC instruction form, patient visit summary, and medication reconciliation form. Date & time record faxed:07/23/17 [id number] Record faxed to: Lindsey Frost Record discussed with/ report given to: DONATO Muñoz
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
--- NOTE | 2017-07-24 23:57 | PN ---
DATE: 07/22/2017 PSYCHIATRIC PROGRESS NOTE This is a late entry 07/22/2017 covers elements not covered in my initial note 07/22/2017. SUBJECTIVE: I met with the patient evening of 07/22/2017. We repeated a CT head showed subdural and it is old from the injury the previous year. He remains confused, wanders the hallways, not aggressive, sexually inappropriate, comments are improved. REVIEW OF SYSTEMS: No CV, , pulmonary, eye, ENT system symptoms on review. Reliability poor. MENTAL STATUS EXAM: Oriented to himself. Insight, judgment, recent and remote memory, attention, concentration, fund of knowledge poor, consistent with his diagnosis mentioned in my initial note. PLAN: Continue psychotropics mentioned in my initial note. Possible discharge by the end of the week. MAN Senthil ANTONIO MD DR: DUNCAN/regine JOB#: [id number] / [id number]
== END 2017-07-23 11:54 | disposition home or self-care (01) | DRG 884 ==
LOC: ER 19:02 → GEROPSY 22:32
PROVIDERS: ADMIT Psychiatry & Neurology Psychiatry; ATTEND Psychiatry & Neurology Psychiatry
DX: F01.51 Vascular dementia, unspecified severity, with behavioral disturbance (principal); F32.3 Major depressive disorder, single episode, severe with psychotic features; G30.9 Alzheimer's disease, unspecified; F02.81 Dementia in other diseases classified elsewhere, unspecified severity, with behavioral disturbance; F05 Delirium due to known physiological condition; F41.9 Anxiety disorder, unspecified; F63.9 Impulse disorder, unspecified; E04.1 Nontoxic single thyroid nodule; I10 Essential (primary) hypertension; N40.1 Benign prostatic hyperplasia with lower urinary tract symptoms; R79.89 Other specified abnormal findings of blood chemistry; E55.9 Vitamin D deficiency, unspecified; R33.8 Other retention of urine; Z66 Do not resuscitate; Z79.899 Other long term (current) drug therapy; Z88.0 Allergy status to penicillin; Z86.79 Personal history of other diseases of the circulatory system
CPT/HCPCS: 36415; 70450; 80048; 80053; 80061; 80164; 81001; 82306; 82607; 83036; 83540; 83550; 83735; 84436; 84443; 84480; 84484; 85025; 86593; 90732; 93005; 99285-25; J7030